=== PATIENT | female | born 1945 | race Caucasian/White ===

== ENCOUNTER → 2019-03-08 15:32 | Outpatient (CLI) | payer MEDICARE, OTHER, SELFPAY ==
[2019-03-08 17:09] LABS: Alanine Aminotransferase 18 IU/L (9-52); Albumin 4.4 g/dL (3.5-5.0); Albumin Globulin Ratio 1.5 (1.0-2.8); Alkaline Phosphatase 103 U/L (38-126); Aspartate Aminotransferase 25 IU/L (14-36); BUN Creatinine Ratio 28.3 (6-22); Bilirubin Total 0.2 mg/dL (0.2-1.3); Blood Urea Nitrogen 17 mg/dL (7-17); Calcium 10.3 mg/dL (8.4-10.2); Carbon Dioxide 29 mmol/L (22-32); Chloride 101 mmol/L (98-107); Cholesterol 128 mg/dL (140-199); Estimated Glomerular Filt Rate > 60.0 mL/min (>60); Globulin 2.9 g/dL (1.7-4.1); Glucose 95 mg/dL (80-110); HDL Cholesterol 79 mg/dL (40-60); HEMOLYSIS < 15 (0-50); LDL Cholesterol Calculated 32 mg/dL (<100); Potassium 4.4 mmol/L (3.4-5.1); Sodium 139 mmol/L (137-145); Total Protein 7.3 g/dL (6.3-8.2); Triglycerides 86 mg/dL (35-150)
== END ==
PROVIDERS: Visit Provider Specialist
DX: E11.9 Type 2 diabetes mellitus without complications (principal)
CPT/HCPCS: 36415; 80053; 80061

== ENCOUNTER → 2019-05-08 14:51 | Outpatient (CLI) | payer MEDICARE, OTHER, SELFPAY ==
[2019-05-08 16:48] LABS: Creatinine Urine Random 75.9 mg/dL
[2019-05-08 16:52] LABS: Microalbumi Creatinin Ratio Ur 9.2 ug/mg CR (<30); Microalbumin Urine Random 0.7 mg/dL (0-1.6)
== END ==
PROVIDERS: PCP Physician Assistant Medical; Visit Provider Family Medicine
DX: E11.9 Type 2 diabetes mellitus without complications (principal)
CPT/HCPCS: 36415; 82043; 82570; 83036

== ENCOUNTER 2019-07-13 11:58 | Emergency (ER) | payer MEDICARE, OTHER, SELFPAY ==
--- NOTE | 2019-07-13 12:13 | DI.RAD.S_ITS ---
PROCEDURE: XR CHEST 1V INDICATIONS: chest pain TECHNIQUE: One view of the chest was acquired. COMPARISON: None. FINDINGS: Surgical changes and devices: None. Lungs and pleura: Lungs are clear. No pleural effusions or pneumothorax. Mediastinum: Mediastinal contours appear normal. Heart size is normal. Bones and chest wall: No suspicious bony lesions. Overlying soft tissues appear unremarkable. IMPRESSION: No acute cardiopulmonary disease. Dictated by: Mario Gonzales M.D. on 07/13/2019 at 14:16 Approved by: Mario Gonzales M.D. on 07/13/2019 at 14:17
[2019-07-13 12:16] VITALS: BP 120/87; PULSE 157; RESP 20; TEMP 36.3; O2SAT 99; BMI 29.8
[2019-07-13 12:19] LABS: Add Manual Diff / Slide Review NO; Basophils Absolute Auto 100 /uL (0-100); Basophils Percent Auto 1.2 % (0-2); Eosinophils Absolute Auto 300 /uL (0-450); Eosinophils Percent Auto 3.2 % (2-4); Hemoglobin 12.5 g/dL (12.0-16.0); Lymphocytes Absolute Auto 3200 /uL (1100-4500); Mean Corpuscular Hemoglobin 29.6 PG (26-34); Mean Corpuscular Volume 89.8 fL (80-100); Monocytes Absolute Auto 700 /uL (0-900); Monocytes Percent Auto 8.4 % (3-14); Neutrophils Absolute Auto 4200 /uL (1500-7000); Neutrophils Percent Auto 49.2 % (50-75); Platelet Count 261 X10^3/uL (150-400); Red Blood Cell Count 4.23 X10^6/uL (4.0-5.2); Red Cell Distribution Width 14.7 % (11.6-14.8); White Blood Cell Count 8.5 X10^3/uL (4.5-11.0)
[2019-07-13 12:20] LABS: INR 0.9 (0.9-1.3); Prothrombin Time 10.4 SECONDS (10.1-12.7)
[2019-07-13 12:23] LABS: PTT Partial Thromboplastin Tim 31 SECONDS (26.4-36.2)
[2019-07-13 12:24] LABS: Alanine Aminotransferase 26 IU/L (<35); Albumin 4.7 g/dL (3.5-5.0); Albumin Globulin Ratio 1.4 (1.0-2.8); Alkaline Phosphatase 121 U/L (38-126); Aspartate Aminotransferase 34 IU/L (14-36); Bilirubin Total 0.3 mg/dL (0.2-1.3); Blood Urea Nitrogen 21 mg/dL (7-17); Calcium 9.9 mg/dL (8.4-10.2); Carbon Dioxide 24 mmol/L (22-32); Chloride 102 mmol/L (98-107); Creatine Kinase 154 U/L (30-135); Estimated Glomerular Filt Rate > 60.0 mL/min (>60); Globulin 3.3 g/dL (1.7-4.1); Glucose 166 mg/dL (80-110); HEMOLYSIS < 15 (0-50); Lipase 116 U/L (23-300); Potassium 4.4 mmol/L (3.4-5.1); Sodium 138 mmol/L (137-145)
[2019-07-13 12:36] LABS: Troponin I < 0.012 ng/mL (0.01-0.034)
[2019-07-13 12:39] LABS: CKMB % Relative Index 1.5 % (1.5-5.0); Creatine Kinase MB 2.26 ng/mL (<2.37)
[2019-07-13 13:19] VITALS: BP 119/62; PULSE 93; RESP 10; O2SAT 98
--- NOTE | 2019-07-13 13:27 | ED_ITS ---
HPI - Arrhythmia/Palpitations General Chief Complaint: Arrhythmia/Palpitations Stated Complaint: states arythmia Time Seen by Provider: 07/13/19 12:26 Source: patient Mode of arrival: Ambulatory Limitations: no limitations History of Present Illness HPI narrative: CC: SVT HPI: The patient is a very pleasant 73-year-old female who states that she has a SVT of 150. 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 She states that she has received no medications to conferred her rhythm. She denies ever being told that she had a pre-excitation or reentrant tachycardia. 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 She takes diltiazem 240 mg per day and metoprolol 25 mg per day as well as magnesium. She states that she took her metoprolol at 11:20 a.m.. Her tachycardia today lasted longer than expected so she came into the emergency department. She has been short of breath but denies any chest pain. She did however feel weak dizzy and without energy. She admits to being a diabetic but has had no hypertension seizure disorder stroke myocardial infarction COPD or asthma. She does not smoke cigarettes or use any drugs. She denies any fever chills sweats headache change in both vision or chest pain. She has had shortness of breath and a minimal dry cough. She has had no nausea vomiting abdominal pain or diarrhea. She denies any urinary symptoms. Related Data Home Medications Medication Instructions Recorded Confirmed rosuvastatin [Crestor] #0 02/23/16 Previous Rx's Medication Instructions Recorded nitrofurantoin monohyd/m-cryst 100 mg PO Q12H #10 cap 02/23/16 [Macrobid] phenazopyridine [Pyridium] 200 mg PO TID #10 tab 02/23/16 Allergies Allergy/AdvReac Type Severity Reaction Status Date / Time adhesive tape [ADHESIVE TAPE] Allergy Mild rash/red Verified 07/13/19 12:16 Review of Systems Review of Systems Narrative: Review systems were negative except for those mentioned in the history of present illness. Exam Narrative Exam Narrative: PHYSICAL EXAM: CONSTITUTIONAL: Awake, Alert, Oriented, Coherent, Cooperative in NAD. Does not appear toxic or ill. Her hair looks as though it was diaphoretic. HEAD: AT/NC EENT: PERRL, FROM of eyes, no discharge, Oral mucosa is moist and pink, posterior pharynx is without erythema or exudate. NECK: Supple, no obvious JVD, Trachea is midline without stridor, no palpable LN or masses. SPINE: No gross deformity, no palpable tenderness of the cervical, thoracic, lumbar or sacral spine. No CVA tenderness. THORAX: No deformity, retractions, chest wall tenderness, LUNGS: Clear with symmetrical breath sounds without respiratory distress HEART: Normal heart tones, regular rhythm and rate with a soft grade 1-2/6 systolic murmur along the left sternal border. She states that she may have a history of mitral insufficiency.. ABDOMEN: Soft, non-tender, normal bowel sounds without guarding, rebound, rigid ity or palpable mass EXTREMITIES: No edema, cyanosis, deformity or tenderness. SKIN: No rash, bruising, petechiae or purpura. NEURO: Awake, alert, oriented, conversive, cranial nerves II-XII are symmetrical and normal, moves all 4 extremities and is ambulatory The patient converted as I touch the patient on the legs and was starting to evaluate and examine the patient. She converted spontaneously. Initial Vital Signs Initial Vital Signs: Vital Signs Temperature 97.4 F L 07/13/19 12:16 Pulse Rate 157 H 07/13/19 12:16 Respiratory Rate 20 07/13/19 12:16 Blood Pressure 120/87 07/13/19 12:16 Pulse Oximetry 99 07/13/19 12:16 Course Course Course Narrative: 1329 patient's chest x-ray by my review reveals no acute cardiopulmonary pathology. When I started to examine the patient she spontaneously converted to a normal sinus rhythm. The ventricular rate was 91 without any acute diagnostic ST segment changes. Her laboratory chemistries are within normal limits. Her BUN is slightly elevated in the patient may be dehydrated. Her magnesium was normal. CPK slightly elevated but troponin was normal. The patient will be discharged. Orders Ordered: ED Orders 07/13/19 12:04 Complete Blood Count AUTO DIFF Stat Comprehensive Metabolic Panel Stat Lipase Stat Magnesium Stat Partial Thromboplastin Time Stat Prothrombin Time INR Stat Troponin & CK Cardiac Panel Stat 07/13/19 12:07 EKG-12 Lead Routine 07/13/19 12:13 XR chest 1V Stat 07/13/19 12:41 EKG-12 Lead Stat Vital Signs Vital signs: Vital Signs - 8 hr 07/13/19 13:19 07/13/19 14:00 Pulse Rate 93 H 86 Respiratory Rate 10 L 18 Blood Pressure 110/61 Blood Pressure [Left Arm] 119/62 Pulse Oximetry 98 97 MDM - Arrhythmia/Palpitations Medical Records Attestation: I reviewed the patient's medical records. Lab Data Attestation: I reviewed the patient's lab results. Result diagrams: 07/13/19 12:04 07/13/19 12:04 Labs: Lab Results 07/13/19 07/13/19 07/13/19 Range/Units 12:04 12:04 12:04 WBC 8.5 (4.5-11.0) X10^3/uL RBC 4.23 (4.0-5.2) X10^6/uL Hgb 12.5 (12.0-16.0) g/dL Hct 38.0 (36-46) % MCV 89.8 (80-100) fL MCH 29.6 (26-34) PG MCHC 33.0 (30-36) % RDW 14.7 (11.6-14.8) % Plt Count 261 (150-400) X10^3/uL Neut % (Auto) 49.2 L (50-75) % Lymph % (Auto) 38.0 (25-40) % [place] % (Auto) 8.4 (3-14) % Eos % (Auto) 3.2 (2-4) % Baso % (Auto) 1.2 (0-2) % Neut # (Auto) 4200 (5260-9894) /uL Lymph # (Auto) 3200 (6120-3573) /uL [place] # (Auto) 700 (0-900) /uL Eos # (Auto) 300 (0-450) /uL Baso # (Auto) 100 (0-100) /uL PT 10.4 (10.1-12.7) SECONDS INR 0.9 (0.9-1.3) APTT 31 (26.4-36.2) SECONDS Sodium 138 (137-145) mmol/L Potassium 4.4 (3.4-5.1) mmol/L Chloride 102 (98-107) mmol/L Carbon Dioxide 24 (22-32) mmol/L BUN 21 H (7-17) mg/dL Creatinine 0.70 (0.52-1.04) mg/dL Estimated GFR > 60.0 (>60) mL/min BUN/Creatinine Ratio 30.0 H (6-22) Glucose 166 H (80-110) mg/dL Calcium 9.9 (8.4-10.2) mg/dL Magnesium (1.6-2.3) mg/dL Total Bilirubin 0.3 (0.2-1.3) mg/dL AST 34 (14-36) IU/L ALT 26 (<35) IU/L Alkaline Phosphatase 121 (38-126) U/L Total Creatine Kinase 154 H (30-135) U/L CK-MB (CK-2) 2.26 (<2.37) ng/mL CK-MB (CK-2) Rel Index 1.5 (1.5-5.0) % Troponin I < 0.012 (0.01-0.034) ng/mL Total Protein 8.0 (6.3-8.2) g/dL Albumin 4.7 (3.5-5.0) g/dL Globulin 3.3 (1.7-4.1) g/dL Albumin/Globulin Ratio 1.4 (1.0-2.8) Lipase 116 (23-300) U/L 02/13/20 Range/Units 12:04 WBC (4.5-11.0) X10^3/uL RBC (4.0-5.2) X10^6/uL Hgb (12.0-16.0) g/dL Hct (36-46) % MCV (80-100) fL MCH (26-34) PG MCHC (30-36) % RDW (11.6-14.8) % Plt Count (150-400) X10^3/uL Neut % (Auto) (50-75) % Lymph % (Auto) (25-40) % [place] % (Auto) (3-14) % Eos % (Auto) (2-4) % Baso % (Auto) (0-2) % Neut # (Auto) (8482-1443) /uL Lymph # (Auto) (4281-4143) /uL [place] # (Auto) (0-900) /uL Eos # (Auto) (0-450) /uL Baso # (Auto) (0-100) /uL PT (10.1-12.7) SECONDS INR (0.9-1.3) APTT (26.4-36.2) SECONDS Sodium (137-145) mmol/L Potassium (3.4-5.1) mmol/L Chloride (98-107) mmol/L Carbon Dioxide (22-32) mmol/L BUN (7-17) mg/dL Creatinine (0.52-1.04) mg/dL Estimated GFR (>60) mL/min BUN/Creatinine Ratio (6-22) Glucose (80-110) mg/dL Calcium (8.4-10.2) mg/dL Magnesium 2.0 (1.6-2.3) mg/dL Total Bilirubin (0.2-1.3) mg/dL AST (14-36) IU/L ALT (<35) IU/L Alkaline Phosphatase (38-126) U/L Total Creatine Kinase (30-135) U/L CK-MB (CK-2) (<2.37) ng/mL CK-MB (CK-2) Rel Index (1.5-5.0) % Troponin I (0.01-0.034) ng/mL Total Protein (6.3-8.2) g/dL Albumin (3.5-5.0) g/dL Globulin (1.7-4.1) g/dL Albumin/Globulin Ratio (1.0-2.8) Lipase (23-300) U/L ECG Data Attestation: I personally reviewed and interpreted this ECG as follows: Interpretation: The patient's EKG obtained on July 13 at 12:0 7:20 a.m. revealed a supraventricular tachycardia with a ventricular rate of 150. No P waves were discernible. The patient looks like she may have left ventricular hypertrophy by voltage. T-waves are inverted in III and V1. The patient had nonspecific ST segment depressions in leads V3 V4 V5 V6 and I. There were no acute ST segment elevations. This may be rate dependent. Patient's 2nd EKG obtained on July 13 at 12:4 1:44 a.m. revealed a ventricular rate of 85 and a sinus rhythm. T-waves were flat in III and inverted in V1 within our SR prime confirmation. The ST segment depressions were not as prominent. There was no acute diagnostic ST segment changes. T- waves were inverted in V1. Discharge Plan Departure Patient Disposition: Home Clinical Impression: Palpitations, Supraventricular tachycardia Discharge Date/Time: 07/13/19 14:02 Instructions: DI for Arrhythmias, DI for Paroxysmal Supraventricular Tachycardia Activity Restrictions/Additional Instructions: 1. Rest when you get home and drink plenty of fluids for the next couple of days. Your laboratory chemistries suggest the possibility of being mildly dehydrated. Normal daily fluid maintenance is 2 L per day. I would try and drink that for the next few days. 2. Take your regular home medications as prescribed. 3. Avoid caffeinated beverages especially today. 4. If you developed recurrent rapid heart rate associated with chest pain, shortness of breath, feelings of being faint or passing-out you need to return to the emergency department. Prescriptions: No Action rosuvastatin [Crestor] 5 MG tablet Qty: 0 RF: 0 phenazopyridine [Pyridium] 200 MG tablet 200 mg PO TID Qty: 10 RF: 0 nitrofurantoin monohyd/m-cryst [Macrobid] 100 MG capsule 100 mg PO Q12H Qty: 10 RF: 0 Referrals: Jorje Shukla [Primary Care Provider] -
[2019-07-13 14:00] VITALS: BP 110/61; PULSE 86; RESP 18; O2SAT 97
== END 2019-07-13 14:02 | disposition home or self-care (01) ==
PROVIDERS: Emergency Provider Emergency Medicine; PCP Family Medicine
DX: I47.1 Supraventricular tachycardia (principal); R00.2 Palpitations
CPT/HCPCS: 36415; 71045; 80053; 82550; 82553; 83690; 83735; 84484; 85025; 85610; 85730; 93005; 99284; 99285

== ENCOUNTER 2019-08-02 12:30 | Outpatient (RCR) | payer MEDICARE, OTHER, SELFPAY ==
--- NOTE | 2019-06-06 15:19 | OT.OP.EVAL ---
Visit Care Team Role Provider Type Jorje Shukla Primary Care Provider Non-Staff Specialty: Medical Address: [address] [place] [address], [id number] Email: Leann Ariza DO Attending Provider Non-Staff Specialty: Medical Address: [address] [place] [address], [id number] Email: Occupational Therapy Initial Evaluation OT Outpatient Adult Evaluation Start: 06/06/19 14:34 Freq: Status: Active Protocol: Document 06/06/19 14:36 AMS (Rec: 06/06/19 15:19 AMS [email or web address]) General Information Visit Start Time 12:30 Visit Stop Time 13:20 Total Visit Minutes 50 Visit Number 06/09 Plan of Care Dates 06/06/19-08/29/19 Insurance Information Medicare Treatment Setting Outpatient Care Note Type Initial Evaluation Referring Physician Leann Ariza DO Reason for Referral OA of both hands Identification Confirmed Yes: Photo ID Patient Concerns Bilateral hand/wrist weakness; trouble dropping things; decreased FM Goals Objective Measurements Pain Assessment Grid completed . 2/10 indicated on the Pain Assessment Grid relative to volar and dorsal surfaces of the R thumb. 3/10 indicated on the Pain Assessment Grid relative to volar and dorsal surfaces of the L thumb and 2/ 10 of the dorsal L wrist. 3/10 was indicated on the Pain Assessment Grid relative to anterior L shoulder. Treatment Initiated home exercise program. Verbally reviewed basic joint protection principles. Instructed in gentle strengthening of hands/ digits utilizing foam stress ball (tip pinch, lateral pinch , opposition), as well as AROM w/ foam stress ball (palmar thumb abduction, thumb extension). Patient denied questions. 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 John Paulylee will be modified independent with execution of distal UE home exercise program utilizing provided written and visual instructions from therapist. 2. Santosh will present with increased bilateral hand/ digit strength, as evidenced by ability to utilize theraputty with execution of home exercise program. 3. John Paulylee will verbalize 100% of joint protection principles utilizing provided written and visual instructions from therapist. Assessment/Plan Patient Response Good Rehabilitation Potential Good Treatment Assessment Patient is a 73 year-old right hand dominant female who was referred to outpatient OT by PCP secondary to bilateral OA of the hands. Santosh reports active lifestyle swimming 3 x per week and using personal elliptical (without arms) and bike 2-3 times per week. PMH: Significant for R radial wrist fracture; arthritis; back pain; cancer; diabetes II ; joint replacement; neck pain ; paroxysmal tachycardia; hysterectomy. Patient concerns: Distal B UE weakness; increasing difficulties w/ managing small objects (e.g., buttons); dropping of objects; questioning sensation. 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 Outpatient OT is recommended to maximize patient's functional success with engagement in meaningful activities. Recommended activities include education re: joint protection and environmental modifications/AE use; gentle strengthening of hands/digits; and fine motor tasks to support motor coordination. Home Exercise Program Please refer to treatment section of note for specific details. Reviewed with Patient Goals,Home Exercise Program Comment 12 weeks Treatment Frequency Once a Week Therapeutic Contents Active Range of Motion, Adaptive Equipment Education, Client Education,Cognitive Skills Development,Functional Activities,Home Exercise Program,Joint Protection, Manual Therapy,Education, Neurodevelopment Treatment, Neuromuscular Re-Education, Self-Care,Stretching/ Flexibility Activities, Therapeutic Activities, Therapeutic Exercises, Modalities Modalities As Needed,As Prescribed Types of Modalities Contrast Bath,Ice Massage, Ultrasound,Other Additional Types of Modalities Parrafin/Heat Patient Instruction Home Exercise Program,Plan of Care,Questions/Concerns Occupational Therapy Assessment OT Outpatient Muscle Testing Start: 06/06/19 14:34 Freq: Status: Active Protocol: Document 06/06/19 14:36 AMS (Rec: 06/06/19 15:19 AMS [email or web address]) Wrist Strength Wrist Manual Muscle Testing Left Flexion (C7) 4 Good Extension (C6) 5 Normal Ulnar Deviation 3+ Fair+ Radial Deviation 3+ Fair+ Right Flexion (C7) 5 Normal Extension (C6) 4 Good Ulnar Deviation 4 Good Radial Deviation 3+ Fair+ Tool Polishing Machine Operator/Hand Strength Tool Polishing Machine Operator/Hand Strength Left Tool Polishing Machine Operator Dynamometer II 33.5 Comments L Tool Polishing Machine Operator Norms for Women 70-74 years of age = 41.5 +/- 10.2 pounds of force Interpretation = within 1 SD below the mean Right Tool Polishing Machine Operator Dynamometer II 31.5 Comments R Tool Polishing Machine Operator Norms for Women 70-74 years of age = 49.6 +/- 11.7 pounds of force Interpretation = > 1 SD below the mean
--- NOTE | 2019-06-21 14:06 | OT.OP.TRT ---
Visit Care Team Role Provider Type Jorje Coreyjoe Primary Care Provider Non-Staff Specialty: Medical Address: [address] [place] [address], [id number] Email: Leann Ariza DO Attending Provider Non-Staff Specialty: Medical Address: [address] [place] [address], [place], [id number] Email: Occupational Therapy Treatment Note OT Outpatient Treatment Note - Adult Start: 06/06/19 14:34 Freq: Status: Active Protocol: Document 06/21/19 13:43 AMS (Rec: 06/21/19 14:06 AMS [email or web address]) OT Outpatient Adult Treatment Note Session Time Visit Start Time 12:30 Visit Stop Time 13:20 Total Visit Minutes 50 Visit Information Plan of Care Dates 06/06/19-08/29/19 Setting Treatment Setting Outpatient Care Visit Type Note Type Treatment Note General Information General Information Patient is a 73 year-old right hand dominant female who was referred to outpatient OT by PCP secondary to bilateral OA of the hands. Santosh reports active lifestyle swimming 3 x per week and using personal elliptical (without arms) and bike 2-3 times per week. PMH: Significant for R radial wrist fracture; arthritis; back pain; cancer; diabetes II ; joint replacement; neck pain ; paroxysmal tachycardia; hysterectomy. - Subjective Identification Type Name Identification Reconciled With Medical Record Observations I have been doing my exercises. I could feel that the muscles in my fatigued from working per Sharylee. I do not think that my dropping of objects is lack of sensation. I think that is more related to proprioception . Chief Complaint(s) Restricts Additional Areas of Concern Distal B UE weakness; diff w/ managing small objects; dropping of objects Patient/Caregiver Compliance with Home Good Exercise Program Comments utilizing provided written/ visual instructions - Objective Objective Measurements Please refer to below for progress towards meeting established OT goals. Residential Goals 1. Santosh will be modified independent with execution of distal UE home exercise program utilizing provided written and visual instructions from therapist. 2. Santosh will present with increased bilateral hand/ digit strength, as evidenced by ability to utilize theraputty with execution of home exercise program. 3. Santosh will verbalize 100% of joint protection principles utilizing provided written and visual instructions from therapist. - Treatment 1 Descriptor Home Exercise Program. Advanced HEP on this treatment date. Initiated strengthening of first DI with active range of motion exercise; palmar abduction w/ rubberband at MCP ; extension of thumb. Written and visual instructions were provided to patient; copy placed in paper chart. Also discussed tightness of thumb webspace; options for release. Discussed advancement of kinesthetic awareness of digits. Patient denied questions. Exercises 2 Descriptor 1st DI Side Both Body Position Seated Sets 2 Repetitions 10 1 Descriptor Thumb ROM. Thumb extension palm TT. Thumb palmar abd. Thumb radial abd. Thumb opposition. Thumb flexion. Side Both Body Position Sitting Sets 2 Repetitions 10 - Assessment Patient Response to Treatment Good Rehab Potential Good Assessment of Improvement (+) compliance with home exercise program; unable to increase to resistance/advance strengthening exercises. Fatigue reported w/ current exercises. Advanced HEP w/ focus on ROM/addressing stiffness/tightness and kinesthetic awareness of digits. Recommend transitioning to 1 visit every 2 weeks given patient compliance w/ HEP and decreased ability to upgrade to resistance w/ current frequency. Patient in agreement. Recommend: alt options for addressing stiffness, joint mobs?, strengthening Home Exercise Program Please refer to treatment section of note for specific details. - Plan Therapy Recommendations Continue with Current Program, Advance per Rehabilitation Protocol
--- NOTE | 2019-07-05 15:10 | OT.OP.TRT ---
Visit Care Team Role Provider Type Jorje Coreyjoe Primary Care Provider Non-Staff Specialty: Medical Address: [address] [place] [address], [id number] Email: Leann Ariza DO Attending Provider Non-Staff Specialty: Medical Address: [address] [place] [address], [place], [address] Email: Occupational Therapy Treatment Note OT Outpatient Treatment Note - Adult Start: 06/06/19 14:34 Freq: Status: Active Protocol: Document 07/05/19 15:00 AMS (Rec: 07/05/19 15:09 AMS [email or web address]) OT Outpatient Adult Treatment Note Session Time Visit Start Time 12:30 Visit Stop Time 13:15 Total Visit Minutes 45 Visit Information Plan of Care Dates 06/06/19-08/29/19 Setting Treatment Setting Outpatient Care Visit Type Note Type Treatment Note General Information General Information Patient is a 73 year-old right hand dominant female who was referred to outpatient OT by PCP secondary to bilateral OA of the hands. Santosh reports active lifestyle swimming 3 x per week and using personal elliptical (without arms) and bike 2-3 times per week. PMH: Significant for R radial wrist fracture; arthritis; back pain; cancer; diabetes II ; joint replacement; neck pain ; paroxysmal tachycardia; hysterectomy. - Subjective Identification Type Name Identification Reconciled With Medical Record Observations I have a pair of pliers in the kitchen attached to my refrigerator to help me open milk containers per Sharylee. I think I hurt this shoulder helping my son out of the front seat of the car. I am now able to open my chapstick which I was having a hard time doing. Chief Complaint(s) Restricts Additional Areas of Concern Distal B UE weakness; diff w/ managing small objects; dropping of objects Patient/Caregiver Compliance with Home Good Exercise Program Comments utilizing provided written/ visual instructions - Objective Objective Measurements Please refer to below for progress towards meeting established OT goals. 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 Santosh will be modified independent with execution of distal UE home exercise program utilizing provided written and visual instructions from therapist. 2. Santosh will present with increased bilateral hand/ digit strength, as evidenced by ability to utilize theraputty with execution of home exercise program. 3. Santosh will verbalize 100% of joint protection principles utilizing provided written and visual instructions from therapist. - Treatment 1 Descriptor Home Exercise Program/POC. Advanced HEP on this treatment date. Initiated strengthening of the jiménez/tip pinches and thumb utilizing soft yellow theraputty; provided w/ theraputty for home use. Instructed in care and storage of theraputty. Discussed alternative use of rubberband if encountering difficulties with management of theraputty. Written and visual instructions were provided to patient; copy placed in paper chart. Discussed importance of use of joint protection principles, use of adaptive equipment/compensatory strategies to protect joints, ROM, and gentle strengthening. Discussed also use of conservative methods for pain/ swelling management. Discussed use of splints if needed. Patient denied questions. Recommended pursuing PT eval to address L shoulder. Exercises 2 Descriptor 1st DI, thumb ext, thumb radial abduction, thumb palmar abduction, lateral jiménez pinch, tip pinch Side Both Body Position Seated Sets 1 Repetitions 10 Resistance Yellow theraputty Complexity Upgraded 1 Descriptor Thumb ROM. Thumb extension palm TT. Thumb palmar abd. Thumb radial abd. Thumb opposition. Thumb flexion. Side Both Body Position Sitting Sets 2 Repetitions 10 - Assessment Patient Response to Treatment Good Rehab Potential Good Assessment of Improvement (+) compliance with home exercise program; advanced strengthening exercises with use of theraputty versus single rubberband. Reported improving functional obj manipulation; however, cont difficulties overall w/ hand fatigue and decreased strength . Discussed potential for PT referral to address L shoulder given focus of OT on distal UEs and OA. Recommend: hand/digit/thumb strengthening; ROM; object manipulation Home Exercise Program Please refer to treatment section of note for specific details. - Plan Therapy Recommendations Continue with Current Program, Advance per Rehabilitation Protocol Suggested Referrals Physical Therapy
--- NOTE | 2019-08-02 15:30 | OT.OP.TRT ---
Visit Care Team Role Provider Type Jorjeneelam Coreyjoe Primary Care Provider Non-Staff Specialty: Medical Address: [address] [place] [address], [id number] Email: Leann Ariza DO Attending Provider Non-Staff Specialty: Medical Address: [address] [place] [address], [place], [address] Email: Occupational Therapy Treatment Note OT Outpatient Treatment Note - Adult Start: 06/06/19 14:34 Freq: Status: Active Protocol: Document 08/02/19 15:30 AMS (Rec: 08/04/19 17:29 AMS [email or web address]) OT Outpatient Adult Treatment Note Session Time Visit Start Time 12:30 Visit Stop Time 13:15 Total Visit Minutes 45 Visit Information Visit Number 09/07 Plan of Care Dates 06/06/19-08/29/19 Insurance Information Medicare Setting Treatment Setting Outpatient Care Visit Type Note Type Treatment Note General Information General Information Patient is a 73 year-old right hand dominant female who was referred to outpatient OT by PCP secondary to bilateral OA of the hands. Santosh reports active lifestyle swimming 3 x per week and using personal elliptical (without arms) and bike 2-3 times per week. PMH: Significant for R radial wrist fracture; arthritis; back pain; cancer; diabetes II ; joint replacement; neck pain ; paroxysmal tachycardia; hysterectomy. - Subjective Identification Type Name Identification Reconciled With Medical Record Observations I am unable to use the theraputty. I am going to be sore after this per Santosh. Chief Complaint(s) Restricts Additional Areas of Concern Distal B UE weakness; diff w/ managing small objects; dropping of objects Patient/Caregiver Compliance with Home Good Exercise Program Comments utilizing provided written/ visual instructions - Objective Objective Measurements Please refer to below for progress towards meeting established OT goals. Ad Trafficker Goals 1. Santosh will be modified independent with execution of distal UE home exercise program utilizing provided written and visual instructions from therapist. 2. Santosh will present with increased bilateral hand/ digit strength, as evidenced by ability to utilize theraputty with execution of home exercise program. 3. Santosh will verbalize 100% of joint protection principles utilizing provided written and visual instructions from therapist. - Treatment 1 Descriptor Home Exercise Program/POC. Discussed use of splints if needed. Reviewed home exercise program and correct execution of exercises. Discussed options for care; discussed importance of gentle strengthening of thumbs ( avoidance of pain/discomfort w/ exercise execution). Patient denied questions. Exercises 3 Descriptor Re-assessed strength (media aid). See standardized section of note for specific details. 2 Descriptor 1st DI, thumb ext, thumb radial abduction, thumb palmar abduction, lateral jiménez pinch, tip pinch Side Both Body Position Seated Sets 1 Repetitions 10 Resistance Yellow theraputty Complexity Upgraded - Assessment Patient Response to Treatment Good Rehab Potential Good Assessment of Improvement Improved bilateral media aid strength as indicated by results of dynamometer strength testing. Improvements made in bilateral wrist strength as indicated by results w/ MMT testing. Not tolerating theraputty at this time with strengthening; focus on gentle strengthening. Will have follow-up treatment session; transition to [facility]. Home Exercise Program Please refer to treatment section of note for specific details. - Plan Therapy Recommendations Continue with Current Program, Advance per Rehabilitation Protocol Suggested Referrals Physical Therapy Occupational Therapy Assessment OT Outpatient Muscle Testing Start: 06/06/19 14:34 Freq: Status: Active Protocol: Document 08/02/19 15:30 AMS (Rec: 08/04/19 17:29 AMS [email or web address]) Wrist Strength Wrist Manual Muscle Testing Left Flexion (C7) 5 Normal Extension (C6) 5 Normal Ulnar Deviation 4+ Good+ Radial Deviation 4+ Good+ Comments *New Measurements taken 08/02/19 Initial evaluation findings: L wrist flexion 4/5; L wrist extension 5/5; 3+/5 UD; 3+/5 RD Right Flexion (C7) 5 Normal Extension (C6) 4+ Good+ Ulnar Deviation 4+ Good+ Radial Deviation 4+ Good+ Comments *New Measurements taken 08/02/19 Initial evaluation findings: R wrist flexion 5/5; R wrist extension 4/5; 4/5 UD; 3+/5 RD Health Professor/Hand Strength Health Professor/Hand Strength Left Health Professor Dynamometer II 36.0 Comments *New Avg obtained 08/02/19 L Health Professor Norms for Women 70-74 years of age = 41.5 +/- 10.2# of force Initial Evaluation = 33.5# of force; Interpretation = within 1 SD below the mean Right Health Professor Dynamometer II 33.5 Comments *New Avg obtained 08/02/19 R Health Professor Norms for Women 70-74 years of age = 49.6 +/- 11.7# of force Initial Evaluation = 31.5# of force; Interpretation = > 1 SD below the mean
--- NOTE | 2020-02-09 09:49 | OT.OP.DC ---
Visit Care Team Role Provider Type Jorje Shukla Primary Care Provider Non-Staff Address: [address] [place] [address], [id number] Email: Leann Ariza DO Attending Provider Non-Staff Address: [address] [place] [address], [id number] Email: OT Outpatient OT Outpatient Adult Evaluation Start: 06/06/19 14:34 Freq: Status: Active Protocol: Document 06/06/19 14:36 AMS (Rec: 06/06/19 15:19 AMS [email or web address]) General Information Session Time Visit Start Time 12:30 Visit Stop Time 13:20 Total Visit Minutes 50 Visit Information Visit Number 06/09 Plan of Care Dates 06/06/19-08/29/19 Insurance Information Medicare Setting Treatment Setting Outpatient Care Visit Type Note Type Initial Evaluation Referral Referring Physician Leann Ariza DO Reason for Referral OA of both hands Identification Identification Confirmed Yes: Photo ID Patient Patient Concerns Bilateral hand/wrist weakness; trouble dropping things; decreased FM Goals Objective Measurements Objective Measurements Pain Assessment Grid completed . 2/10 indicated on the Pain Assessment Grid relative to volar and dorsal surfaces of the R thumb. 3/10 indicated on the Pain Assessment Grid relative to volar and dorsal surfaces of the L thumb and 2/ 10 of the dorsal L wrist. 3/10 was indicated on the Pain Assessment Grid relative to anterior L shoulder. Treatment Treatment Initiated home exercise program. Verbally reviewed basic joint protection principles. Instructed in gentle strengthening of hands/ digits utilizing foam stress ball (tip pinch, lateral pinch , opposition), as well as AROM w/ foam stress ball (palmar thumb abduction, thumb extension). Patient denied questions. 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 Santosh will be modified independent with execution of distal UE home exercise program utilizing provided written and visual instructions from therapist. 2. Santosh will present with increased bilateral hand/ digit strength, as evidenced by ability to utilize theraputty with execution of home exercise program. 3. John Paulylee will verbalize 100% of joint protection principles utilizing provided written and visual instructions from therapist. Assessment/Plan Assessment Patient Response Good Rehabilitation Potential Good Treatment Assessment Patient is a 73 year-old right hand dominant female who was referred to outpatient OT by PCP secondary to bilateral OA of the hands. Santosh reports active lifestyle swimming 3 x per week and using personal elliptical (without arms) and bike 2-3 times per week. PMH: Significant for R radial wrist fracture; arthritis; back pain; cancer; diabetes II ; joint replacement; neck pain ; paroxysmal tachycardia; hysterectomy. Patient concerns: Distal B UE weakness; increasing difficulties w/ managing small objects (e.g., buttons); dropping of objects; questioning sensation. 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 Patient presents w/ decreased hand/ digit strength w/ (-) tolerance for pinch strength testing; decreased bilateral brazing machine setter strength compared to same -aged female peers; with mild edema of the dorsal radial side of L wrist; decreased bilateral wrist strength; intact opposition with EO and EC; slight errors observed [id number] bilaterally w/ EC (errors more notable w/ R UE movement); denial in change in sensation of distal UEs; and reported decreasing functional speed and efficiency w/ small object manipulation (e.g., button manipulation/management). Outpatient OT is recommended to maximize patient's functional success with engagement in meaningful activities. Recommended activities include education re: joint protection and environmental modifications/AE use; gentle strengthening of hands/digits; and fine motor tasks to support motor coordination. Home Exercise Program Please refer to treatment section of note for specific details. Reviewed with Patient Goals,Home Exercise Program Plan Comment 12 weeks Treatment Frequency Once a Week Therapeutic Contents Active Range of Motion, Adaptive Equipment Education, Client Education,Cognitive Skills Development,Functional Activities,Home Exercise Program,Joint Protection, Manual Therapy,Education, Neurodevelopment Treatment, Neuromuscular Re-Education, Self-Care,Stretching/ Flexibility Activities, Therapeutic Activities, Therapeutic Exercises, Modalities Modalities As Needed,As Prescribed Types of Modalities Contrast Bath,Ice Massage, Ultrasound,Other Additional Types of Modalities Parrafin/Heat Patient Instruction Home Exercise Program,Plan of Care,Questions/Concerns Sensory Assessment Sensory Profile2 Functional Wrist/Hand Scan Hand Side OT Outpatient Muscle Testing Start: 06/06/19 14:34 Freq: Status: Active Protocol: Document 08/02/19 15:30 AMS (Rec: 08/02/19 15:34 AMS [email or web address]) Wrist Strength Wrist Manual Muscle Testing Left Flexion (C7) 4 Good Extension (C6) 5 Normal Ulnar Deviation 3+ Fair+ Radial Deviation 3+ Fair+ Right Flexion (C7) 5 Normal Extension (C6) 4 Good Ulnar Deviation 4 Good Radial Deviation 3+ Fair+ Public Speaking Instructor/Hand Strength Public Speaking Instructor/Hand Strength Left Public Speaking Instructor Dynamometer II 33.5 Comments L Public Speaking Instructor Norms for Women 70-74 years of age = 41.5 +/- 10.2# of force Interpretation = within 1 SD below the mean Right Public Speaking Instructor Dynamometer II 31.5 Comments R Public Speaking Instructor Norms for Women 70-74 years of age = 49.6 +/- 11.7# of force Interpretation = > 1 SD below the mean OT Outpatient Treatment Note - Adult Start: 06/06/19 14:34 Freq: Status: Active Protocol: Document 02/09/20 09:47 AMS (Rec: 02/09/20 09:49 AMS [id number]) OT Outpatient Adult Treatment Note Visit Information Plan of Care Dates 06/06/19-08/29/19 Setting Treatment Setting Outpatient Care Visit Type Note Type Discharge Summary - Subjective Observations Vernell has not been seen in the outpatient clinic since 08/02/19 for OT. POC also as of 08/29/19. Thus, recommend d/ c and therapist to re-evaluate as deemed appropriate by patient's PCP. - Objective Non Garment Sewing Machine Operator Goals 1. Santosh will present with increased bilateral hand/ digit strength, as evidenced by ability to utilize theraputty with execution of home exercise program. 2. Santosh will verbalize 100% of joint protection principles utilizing provided written and visual instructions from therapist. GOALS MET OF TIME OF D/C Modified independent with execution of distal UE home exercise program utilizing provided written and visual instructions from therapist. = mod I w/ execution of HEP that was established as of 08/02/19 (last treatment date) - - Assessment Assessment of Improvement Vernell has not been seen in the outpatient clinic since 08/02/19 for OT. POC also as of 3/31/20. Thus, recommend d/ c and therapist to re-evaluate as deemed appropriate by patient's PCP. - Plan Therapy Recommendations Discharge from Occupational Therapy
== END 2020-02-12 13:35 ==
LOC: OT 12:30
PROVIDERS: PCP Family Medicine; Visit Provider Family Medicine
DX: M19.041 Primary osteoarthritis, right hand (principal); M19.042 Primary osteoarthritis, left hand
CPT/HCPCS: 97110; 97165

== ENCOUNTER → 2019-09-27 15:32 | Outpatient (CLI) | payer MEDICARE, OTHER, SELFPAY ==
[2019-09-27 15:55] LABS: Bacteria Urine None Seen
[2019-09-27 16:33] LABS: Appearance Urine UA CLEAR; Bilirubin Urine UA NEGATIVE (NEGATIVE); Color Urine UA YELLOW; Glucose Urine UA NEGATIVE (Negative); Ketones Urine UA NEGATIVE (NEGATIVE); Leukocyte Esterase Urine UA TRACE (NEGATIVE); Nitrite Urine UA NEGATIVE (Negative); Occult Blood Urine UA 2+ (Negative); Protein Urine UA NEGATIVE (Negative); Specific Gravity Urine UA 1.015 (1.000-1.035); Urobilinogen Urine UA 0.2 E.U./dL (0.2)
[2019-09-27 16:42] LABS: pH Urine UA 5.5 (4.5-8.0)
[2019-09-27 16:54] LABS: Culture Indicated Urine Specimen Cultured; RBC Urine 1-5/HPF (0-5/HPF); Squamous Epithelial Cell Urine 0-1 /HPF (0-5/HPF); WBC Urine 10-30/HPF (0-5/HPF)
== END ==
PROVIDERS: PCP Family Medicine; Referring Provider Neuromusculoskeletal Medicine & OMM; Visit Provider Neuromusculoskeletal Medicine & OMM
DX: R39.9 Unspecified symptoms and signs involving the genitourinary system (principal)
CPT/HCPCS: 81001; 87086

== ENCOUNTER → 2019-11-16 15:05 | Outpatient (CLI) | payer MEDICARE, OTHER, SELFPAY ==
[2019-11-16 16:20] LABS: Alanine Aminotransferase 23 IU/L (<35); Albumin 4.4 g/dL (3.5-5.0); Albumin Globulin Ratio 1.5 (1.0-2.8); Alkaline Phosphatase 121 U/L (38-126); Aspartate Aminotransferase 29 IU/L (14-36); BUN Creatinine Ratio 33.9 (6-22); Bilirubin Total 0.2 mg/dL (0.2-1.3); Blood Urea Nitrogen 19 mg/dL (7-17); Calcium 9.9 mg/dL (8.4-10.2); Carbon Dioxide 27 mmol/L (22-32); Chloride 101 mmol/L (98-107); Estimated Glomerular Filt Rate > 60.0 mL/min (>60); Globulin 2.9 g/dL (1.7-4.1); Glucose 119 mg/dL (80-110); HEMOLYSIS < 15 (0-50); Magnesium 2.2 mg/dL (1.6-2.3); Potassium 4.4 mmol/L (3.4-5.1); Sodium 137 mmol/L (137-145); Total Protein 7.3 g/dL (6.3-8.2)
[2019-11-18 08:08] LABS: Cholesterol, Total 175 mg/dL (100-199); HDL-Cholesterol 73 mg/dL (>39); HDL-Particle (Total) 44.1 umol/L (>=30.5); LDL Particle 772 nmol/L (<1000); LDL Size 20.8 nm (>20.5); LDL-Cholsterol 56 mg/dL (0-99); LP-IR Score 66 (<=45); Small LDL- Particle 307 nmol/L (<=527); Triglycerides 228 mg/dL (0-149)
== END ==
PROVIDERS: PCP Family Medicine; Referring Provider Specialist; Visit Provider Specialist
DX: I47.1 Supraventricular tachycardia (principal); E11.9 Type 2 diabetes mellitus without complications; I47.9 Paroxysmal tachycardia, unspecified
CPT/HCPCS: 36415; 80053; 80061; 83704; 83735

== ENCOUNTER → 2020-04-26 16:47 | Outpatient (CLI) | payer MEDICARE, OTHER, SELFPAY ==
[2020-04-26 18:17] LABS: Hemoglobin A1C% w Est Avg Glu 7.3 % (4.0-6.0)
[2020-04-26 18:26] LABS: Creatinine Urine Random 55.6 mg/dL
[2020-04-26 18:33] LABS: Microalbumin Urine Random < 0.6 mg/dL (0-1.6)
== END ==
PROVIDERS: Neuromusculoskeletal Medicine & OMM; PCP Family Medicine; Referring Provider Family Medicine; Visit Provider Family Medicine
DX: R73.03 Prediabetes (principal)
CPT/HCPCS: 36415; 82043; 82570; 83036

== ENCOUNTER → 2020-08-08 12:29 | Outpatient (CLI) | payer MEDICARE, OTHER, SELFPAY ==
[2020-08-08] MEDS: COVID-19 VACC, Ad26(JANSSEN)/PF 0.5 ML IM (12:35)
== END ==
PROVIDERS: PCP Family Medicine; Visit Provider Internal Medicine
DX: Z23 Encounter for immunization (principal)
CPT/HCPCS: 0031A; 91303

== ENCOUNTER → 2020-09-09 12:36 | Outpatient (CLI) | payer MEDICARE, OTHER, SELFPAY ==
[2020-09-09 13:37] LABS: Hemoglobin A1C% w Est Avg Glu 7.3 % (4.0-6.0)
[2020-09-09 13:44] LABS: Add Manual Diff / Slide Review NO; Basophils Absolute Auto 100 /uL (0-100); Basophils Percent Auto 1.6 % (0-2); Eosinophils Absolute Auto 300 /uL (0-450); Eosinophils Percent Auto 5.1 % (2-4); Hematocrit 35.7 % (36-46); Hemoglobin 11.7 g/dL (12.0-16.0); Lymphocytes Absolute Auto 2600 /uL (1100-4500); Lymphocytes Percent Auto 40.8 % (25-40); Mean Corpuscular HGB Conc 32.9 % (30-36); Mean Corpuscular Hemoglobin 29.3 PG (26-34); Mean Corpuscular Volume 88.9 fL (80-100); Monocytes Absolute Auto 700 /uL (0-900); Monocytes Percent Auto 10.5 % (3-14); Neutrophils Absolute Auto 2700 /uL (1500-7000); Platelet Count 236 X10^3/uL (150-400); Red Blood Cell Count 4.01 X10^6/uL (4.0-5.2); Red Cell Distribution Width 14.8 % (11.6-14.8); White Blood Cell Count 6.5 X10^3/uL (4.5-11.0)
[2020-09-09 13:55] LABS: Alanine Aminotransferase 22 IU/L (<35); Albumin 4.5 g/dL (3.5-5.0); Albumin Globulin Ratio 1.5 (1.0-2.8); Alkaline Phosphatase 97 U/L (38-126); Aspartate Aminotransferase 28 IU/L (14-36); BUN Creatinine Ratio 25.9 (6-22); Bilirubin Total 0.2 mg/dL (0.2-1.3); Blood Urea Nitrogen 15 mg/dL (7-17); Calcium 9.9 mg/dL (8.4-10.2); Carbon Dioxide 29 mmol/L (22-32); Chloride 102 mmol/L (98-107); Cholesterol 145 mg/dL (140-199); Estimated Glomerular Filt Rate > 60.0 mL/min (>60); Globulin 3.1 g/dL (1.7-4.1); Glucose 136 mg/dL (80-110); HDL Cholesterol 61 mg/dL (40-60); HEMOLYSIS < 15 (0-50); LDL Cholesterol Calculated 61 mg/dL (<100); Potassium 4.4 mmol/L (3.4-5.1); Sodium 137 mmol/L (137-145); Total Protein 7.6 g/dL (6.3-8.2); Triglycerides 115 mg/dL (35-150)
[2020-09-09 13:59] LABS: HEMOLYSIS < 15 (0-50); Iron 85 ug/dL (37-170)
[2020-09-09 14:10] LABS: Percent Iron Saturation 19 % (15-50); Total Iron Binding Capacity 450 ug/dL (265-497); Transferrin 362 mg/dL (206-381)
== END ==
PROVIDERS: PCP Family Medicine; Referring Provider Specialist; Visit Provider Specialist
DX: I10 Essential (primary) hypertension (principal); E11.29 Type 2 diabetes mellitus with other diabetic kidney complication; E78.2 Mixed hyperlipidemia; D50.9 Iron deficiency anemia, unspecified
CPT/HCPCS: 36415; 80053; 80061; 83036; 83540; 83550; 83735; 85025

== ENCOUNTER → 2021-08-04 12:20 | Outpatient (CLI) | payer MEDICARE, SELFPAY ==
[2021-08-04 13:46] LABS: Add Manual Diff / Slide Review NO; Basophils Absolute Auto 100 /uL (0-100); Basophils Percent Auto 0.9 % (0-2); Eosinophils Absolute Auto 100 /uL (0-450); Eosinophils Percent Auto 1.9 % (2-4); Hematocrit 34.3 % (36-46); Hemoglobin 11.2 g/dL (12.0-16.0); Lymphocytes Absolute Auto 2600 /uL (1100-4500); Lymphocytes Percent Auto 33.5 % (25-40); Mean Corpuscular HGB Conc 32.6 % (30-36); Monocytes Absolute Auto 700 /uL (0-900); Neutrophils Absolute Auto 4200 /uL (1500-7000); Neutrophils Percent Auto 54.7 % (50-75); Platelet Count 277 X10^3/uL (150-400); Red Blood Cell Count 3.99 X10^6/uL (4.0-5.2); Red Cell Distribution Width 15.2 % (11.6-14.8); White Blood Cell Count 7.7 X10^3/uL (4.5-11.0)
[2021-08-04 13:56] LABS: Hemoglobin A1C% w Est Avg Glu 8.4 % (4.0-6.0)
[2021-08-04 14:21] LABS: Alanine Aminotransferase 21 IU/L (<35); Albumin 4.7 g/dL (3.5-5.0); Albumin Globulin Ratio 1.4 (1.0-2.8); Alkaline Phosphatase 92 U/L (38-126); Aspartate Aminotransferase 31 IU/L (14-36); Bilirubin Total 0.4 mg/dL (0.2-1.3); Blood Urea Nitrogen 15 mg/dL (7-17); Calcium 9.5 mg/dL (8.4-10.2); Carbon Dioxide 30 mmol/L (22-32); Chloride 100 mmol/L (98-107); Estimated Glomerular Filt Rate > 60.0 mL/min (>60); Globulin 3.3 g/dL (1.7-4.1); Glucose 127 mg/dL (80-110); HEMOLYSIS < 15 (0-50); Magnesium 1.9 mg/dL (1.6-2.3); Potassium 4.2 mmol/L (3.4-5.1); Sodium 136 mmol/L (137-145)
[2021-08-04 15:41] LABS: Creatinine Urine Random 37.9 mg/dL
[2021-08-04 15:51] LABS: Microalbumin Urine Random < 0.6 mg/dL (0-1.6)
== END ==
PROVIDERS: PCP Family Medicine; Referring Provider Family Medicine; Visit Provider Family Medicine
DX: I10 Essential (primary) hypertension (principal); E11.9 Type 2 diabetes mellitus without complications; E78.2 Mixed hyperlipidemia; D64.9 Anemia, unspecified
CPT/HCPCS: 80053; 82043; 82570; 83036; 83735; 85025

== ENCOUNTER → 2021-08-06 09:23 | Outpatient (CLI) | payer MEDICARE, SELFPAY ==
[2021-08-06 10:50] LABS: Ferritin 12 ng/mL (11-264)
== END ==
PROVIDERS: PCP Family Medicine; Visit Provider Family Medicine
DX: D64.9 Anemia, unspecified (principal)
CPT/HCPCS: 82728

== ENCOUNTER → 2021-10-15 14:32 | Outpatient (CLI) | payer MEDICARE, OTHER, SELFPAY ==
[2021-10-16 06:25] LABS: Fecal Immunochemical Test Negative (Negative)
== END ==
PROVIDERS: PCP Family Medicine; Referring Provider Family Medicine; Visit Provider Family Medicine
DX: E11.9 Type 2 diabetes mellitus without complications (principal); Z12.11 Encounter for screening for malignant neoplasm of colon
CPT/HCPCS: 82274

== ENCOUNTER → 2022-01-01 16:21 | Outpatient (CLI) | payer MEDICARE, OTHER, SELFPAY ==
[2022-01-01 17:50] LABS: Hematocrit 32.3 % (36-46); Hemoglobin 10.7 g/dL (12.0-16.0)
[2022-01-01 17:58] LABS: Hemoglobin A1C% w Est Avg Glu 9.3 % (4.0-6.0)
[2022-01-01 18:02] LABS: Alanine Aminotransferase 22 IU/L (<35); Albumin 4.2 g/dL (3.5-5.0); Albumin Globulin Ratio 1.4 (1.0-2.8); Alkaline Phosphatase 102 U/L (38-126); Aspartate Aminotransferase 27 IU/L (14-36); BUN Creatinine Ratio 33.8 (6-22); Bilirubin Total 0.2 mg/dL (0.2-1.3); Blood Urea Nitrogen 22 mg/dL (7-17); Calcium 8.9 mg/dL (8.4-10.2); Carbon Dioxide 26 mmol/L (22-32); Chloride 103 mmol/L (98-107); Estimated Glomerular Filt Rate > 60 mL/min (>60); Glucose 295 mg/dL (80-110); HEMOLYSIS 24 (0-50); Potassium 4.3 mmol/L (3.4-5.1); Sodium 135 mmol/L (137-145); Total Protein 7.2 g/dL (6.3-8.2)
[2022-01-01 19:15] LABS: Creatinine Urine Random 53.6 mg/dL
[2022-01-01 19:22] LABS: Microalbumi Creatinin Ratio Ur 14.9 ug/mg CR (<30); Microalbumin Urine Random 0.8 mg/dL (0-1.6)
== END ==
PROVIDERS: PCP Family Medicine; Referring Provider Family Medicine; Visit Provider Family Medicine
DX: E11.9 Type 2 diabetes mellitus without complications (principal); I10 Essential (primary) hypertension; I45.6 Pre-excitation syndrome
CPT/HCPCS: 36415; 80053; 82043; 82570; 83036; 85014; 85018

== ENCOUNTER → 2022-03-18 14:01 | Outpatient (CLI) | payer MEDICARE, OTHER, SELFPAY ==
--- NOTE | 2022-03-26 16:43 | DIAB.MNT ---
Initial Diabetes Medical Nutrition Therapy Assessment Name: Santosh Magdaleno Date: 03/17/22 Time:210-310p Dx: Type II Diabetes Provider: Tori Santosh presents for initial visit today. States she has had DM for 12 years with +FH of mother and brother. Recent HgA1c of 9.3%. Currently taking Januvia and Metformin. 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 Endorses weight gain over covid, about 19#. Prior to covid endorses HgA1c often 6-7%. Then during was 8-9%. Since covid she states she has been depressed. Feels she has been missing out on a lot of activities, ie movies, trade shows. Continues to be very careful of covid to protect her son. To manage stress: reads, calls someone Has recently reduced breakfast portions by half. Diet Recall: 830a: low carb milk, raisin toast, cottage cheese, sausage 1p: soup, pastry, bread or open faced sandwich 5p: 2 crackers with cheese 7p: 3-5 oz meat with salad and 1c starch 1030p: milk or cookies or chocolate Anthropometrics: Ht: 5'6.5 Wt: 191.6# per EMR Physical Activity: swims 3x per week for 30 mins. Active in caregiving daily. Considering walking [employer] since they go there for an activity for her son weekly. Self-Monitoring Blood Glucose: None. Does not have supplies. Last time she ordered and paid for strips out of pocket was one year ago. 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 Provided appropriate educational handouts. Discussed the following topics: Completed intake assessment. Discussed barriers to care. Pathophysiology of T2DM HgA1c, its correlation to blood glucose numbers, and rationale for goal Importance of self-monitoring, how often, and when to check. Suggested checking at different times to evaluate meals Plate Method, impact of macronutrients on blood sugar Recommended servings for carbohydrates at meals and snacks Role of physical activity and following provider guidelines for safety Created SMART goals for patient self-care and success. Goals: Discuss SMBG supplies with provider Walk [employer] 2x per week Follow-up: ERNIE GONZALEZ follow-up in 3-4 weeks Blanca Juarez RDN, [facility] Certified Diabetes Care and Diet Kitchen Cook P: [phone] Thank you for this referral
== END ==
PROVIDERS: PCP Family Medicine; Referring Provider Family Medicine; Visit Provider Family Medicine
DX: E11.9 Type 2 diabetes mellitus without complications (principal); Z79.84 Long term (current) use of oral hypoglycemic drugs; Z71.3 Dietary counseling and surveillance
CPT/HCPCS: 97802

== ENCOUNTER 2022-03-27 14:30 | Outpatient (RCR) | payer MEDICARE, OTHER, SELFPAY ==
--- NOTE | 2022-01-09 16:27 | PT.OIE ---
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) Past Medical History (Last Reviewed 02/26/20 @ 14:30 by Ivonne Merrill MD) Endometrial cancer Past Surgical History (Last Reviewed 02/26/20 @ 14:30 by Ivonne Merrill MD) H/O section History of knee replacement History of oophorectomy History of total abdominal hysterectomy and bilateral salpingo-oophorectomy Visit Care Team Role Provider Type [place] Valle MD Primary Care Provider Physician Specialty: [facility] Address: [address] [place] [address], [facility] Email: [email or web address] Maryellen Rosas DO Attending Provider Non-Staff Referring Provider Specialty: Urology Address: [address] [place] [address], [id number] Email: Physical Therapy Initial Evaluation PT-OP-A Visit Information Start: 12/30/21 15:05 Freq: Status: Active Protocol: Document 01/09/22 14:36 AMB (Rec: 01/09/22 15:39 AMB [id number]) Out-Patient Physical Therapy Visit Information Visit Information Visit Type Initial Evaluation Visit Start Time 14:30 Visit Stop Time 15:15 Total Visit Minutes 45 Visit Number 1 PT-OP-B Current Condition Start: 12/30/21 15:05 Freq: Status: Active Protocol: Document 01/09/22 14:36 AMB (Rec: 01/09/22 15:39 AMB [id number]) Current Condition History of Current Condition History of Current Condition Urgency of urine and fecal. Sometimes having 6 BMs in 2 hours. Had been taking immodium. Was having diarhea yesterday. Urinates every 2 hours. Does have a history of cystocele. Immodium seems to help with both urine and feces. Levering stool scale 4- 5. Does have urgency of feces. Does sometimes have difficulty sensing when having a bowel movement. 1 C- section. Way back when had chronic constipation, does have hemorrhoids. Hysterectomy- for endometrial cancer. Concerned about low back, was told she had disc issues years ago. Treatment Goals Patient/Caregiver Goals REduce severity of urgency. Sometimes maybe waiting a minute, sometimes 10 minutes for urinary urgency. Personal Factors Other Personal Factors That May Effect Hx , hysterectomy for Therapy/Recovery endometrial cancer, oophorectomy PT-OP-I Pelvic Floor Start: 12/30/21 15:05 Freq: Status: Active Protocol: Document 01/09/22 14:30 AMB (Rec: 01/14/22 16:04 AMB [id number]) Pelvic Floor Assessment Urine Pelvic Floor Surgery Yes: hysterectomy, oophorectomy, Urinary Symptoms Prolapse Leakage Size Large Leakage Cause Urge Leaks Per Day 5 Voiding Frequency 6x/day Nocturia 3 Urine Pad Type Depends Bowel Bowel Symptoms Fecal Leakage Other Bowel Symptoms diarrhea Bowel Movement Frequency up to 6x/day Levering Stool Chart Type 1-7 5 Levering Stool Chart Comments diarrhea at times, usually 4-5 PT-OP-T Assessment and Plan Start: 12/30/21 15:05 Freq: Status: Active Protocol: Document 01/09/22 14:30 AMB (Rec: 01/15/22 16:24 AMB [id number]) Physical Therapy Assessment Rehab Potential Rehabilitation Potential Good Evaluation Complexity Number of Personal Factors/Comorbidities 1-2 Number of Body Systems Impaired 3 Clinical Presentation at Evaluation Evolving Impairments Impairments Activity Tolerance,Sensation, Strength Goals Two Impairment Urgency Short Term Goal (STG) Santosh will be able to wait 5 minutes to void if needed without leaking. STG Duration 4 weeks Supervisor Pipe Manufacture Goal (LTG) Santosh will be able to contract her pelvic floor 5x in standing to reduce her urinary and fecal incontinence . LTG Duration 8 weeks One Impairment Continence Short Term Goal (STG) Santosh will move from sit to stand without leaking urine. STG Duration 4 weeks Care Home Goal (LTG) Santosh will be independent with a home exercise program to strengthen her pelvic floor to assist with urinary and fecal continence. LTG Duration 8 weeks Assessment Summary Assessment Santosh attends physical therapy with urinary incontinence since 2015 and fecal incontinence since 2019. She presents with significant urgency and frequency, not really stress incontinence. Can have many bowel movements in a row that are very urgent, sometimes has a hard time feeling that she is having a bowel movement if she is urinating. Does have history of prolapse, and a difficult time completely voiding urine without straining. She will benefit from physical therapy to strengthen her pelvic floor and further instruction in urge reduction techniques which were begun during evaluation. Physical Therapy Plan Frequency and Duration Frequency of Treatment 1x/Week Duration of Treatment 10 weeks Plan of Care Start Date 01/09/22 Plan of Care End Date 03/20/22 Therapeutic Interventions Therapeutic Interventions Home Exercise Program,Manual Therapy,Neuromuscular Re- education,Self-Care/Home Management,Therapeutic Activities,Therapeutic Exercises Modalities Biofeedback,Electric Stimulation Next Visit Focus/Plan Next Note Type Treatment Note Next Visit Plan Pelvic floor strength assessment and assessment of prolapse.
--- NOTE | 2022-01-09 16:28 | PT.OPPOC ---
Physical, Occupational & Speech Therapy At 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) Visit Care Team Role Provider Type [place] Valle MD Primary Care Provider Physician Specialty: Family Practice Address: [address] [place] [address], [place], [address] Email: [email or web address] Maryellen Rosas DO Attending Provider Non-Staff Referring Provider Specialty: Urology Address: [address] [place] [address], [id number] Email: Plan Of Care PT-OP-T Assessment and Plan Start: 12/30/21 15:05 Freq: Status: Active Protocol: Document 01/09/22 14:30 AMB (Rec: 01/15/22 16:24 AMB [id number]) Physical Therapy Assessment Rehab Potential Rehabilitation Potential Good Evaluation Complexity Number of Personal Factors/Comorbidities 1-2 Number of Body Systems Impaired 3 Clinical Presentation at Evaluation Evolving Impairments Impairments Activity Tolerance,Sensation, Strength Goals Two Impairment Urgency Short Term Goal (STG) Santosh will be able to wait 5 minutes to void if needed without leaking. STG Duration 4 weeks Nursing Home Goal (LTG) Santosh will be able to contract her pelvic floor 5x in standing to reduce her urinary and fecal incontinence . LTG Duration 8 weeks One Impairment Continence Short Term Goal (STG) Santosh will move from sit to stand without leaking urine. STG Duration 4 weeks Therapist Occupational Goal (LTG) Santosh will be independent with a home exercise program to strengthen her pelvic floor to assist with urinary and fecal continence. LTG Duration 8 weeks Assessment Summary Assessment Santosh attends physical therapy with urinary incontinence since 2015 and fecal incontinence since 2019. She presents with significant urgency and frequency, not really stress incontinence. Can have many bowel movements in a row that are very urgent, sometimes has a hard time feeling that she is having a bowel movement if she is urinating. Does have history of prolapse, and a difficult time completely voiding urine without straining. She will benefit from physical therapy to strengthen her pelvic floor and further instruction in urge reduction techniques which were begun during evaluation. Physical Therapy Plan Frequency and Duration Frequency of Treatment 1x/Week Duration of Treatment 10 weeks Plan of Care Start Date 01/09/22 Plan of Care End Date 03/20/22 Therapeutic Interventions Therapeutic Interventions Home Exercise Program,Manual Therapy,Neuromuscular Re- education,Self-Care/Home Management,Therapeutic Activities,Therapeutic Exercises Modalities Biofeedback,Electric Stimulation Next Visit Focus/Plan Next Note Type Treatment Note Next Visit Plan Pelvic floor strength assessment and assessment of prolapse. Plan of Care Dates Plan of Care Start Date 01/09/22 Plan of Care End Date 03/20/22 Electronically Signed by: Leann Lucas, PT 01/15/22 [id number] If you are in agreement with this Plan of Care, please return a signed and dated copy. I have reviewed this Plan of Care and certify that the skilled therapy services above are required to meet the patient?s needs. Physician Signature Date Printed Name and Credentials Clinical Instructor Signature Printed Name and Credentials
--- NOTE | 2022-01-16 22:10 | PT.OTN ---
Current Diagnoses Urge incontinence (01/16/22) Full incontinence of feces (01/16/22) Physical Therapy Treatment Note PT-OP-A Visit Information Start: 12/30/21 15:05 Freq: Status: Active Protocol: Document 01/16/22 14:32 AMB (Rec: 01/16/22 16:10 AMB [id number]) Out-Patient Physical Therapy Visit Information Visit Information Visit Type Treatment Note Visit Start Time 14:30 Visit Stop Time 15:15 Total Visit Minutes 45 Visit Number 2 PT-OP-B Current Condition Start: 12/30/21 15:05 Freq: Status: Active Protocol: Document 01/09/22 14:36 AMB (Rec: 01/09/22 15:39 AMB [id number]) Current Condition History of Current Condition History of Current Condition Urgency of urine and fecal. Sometimes having 6 BMs in 2 hours. Had been taking immodium. Was having diarheah yesterday. Urinates every 2 hours. Does have a history of cystocele. Immodium seems to help with both urine and feces. [place] stool scale 4- 5. Does have urgency of feces. Does sometimes have difficulty sensing when having a bowel movement. 1 C- section. Way back when had chronic constipation, does have hemherhoidds. Hysterctomy- for endometrial cancer. Concerned about low back, was told she had disc issues years ago. Treatment Goals Patient/Caregiver Goals REduce severity of urgency. Sometimes maybe waiting a minute, sometimes 10 minutes for urinary urgency. Personal Factors Other Personal Factors That May Effect Hx , hysterectomy for Therapy/Recovery endometrial cancer, oophorectomy PT-OP-C Subjective Start: 12/30/21 15:05 Freq: Status: Active Protocol: Document 01/16/22 14:32 AMB (Rec: 01/16/22 16:10 AMB [id number]) OP-PT Subjective Patient Comments Patient Comments Pt has been able to use the urge reduction technique successfully for urination. PT-OP-I Pelvic Floor Start: 12/30/21 15:05 Freq: Status: Active Protocol: Document 01/09/22 14:30 AMB (Rec: 01/14/22 16:04 AMB [id number]) Pelvic Floor Assessment Urine Pelvic Floor Surgery Yes: hysterectomy, oophorectomy, Urinary Symptoms Prolapse Leakage Size Large Leakage Cause Urge Leaks Per Day 5 Voiding Frequency 6x/day Nocturia 3 Urine Pad Type Depends Bowel Bowel Symptoms Fecal Leakage Other Bowel Symptoms diarrhea Bowel Movement Frequency up to 6x/day [place] Stool Chart Type 1-7 5 [place] Stool Chart Comments diarrhea at times, usually 4-5 PT-OP-Q Treatments Start: 12/30/21 15:05 Freq: Status: Active Protocol: Document 01/16/22 14:30 AMB (Rec: 01/17/22 22:10 AMB [id number]) Therapeutic Exercises Supine Exercises quick flicks, vs long holds Comments avoiding excessive TA usage Sitting Exercises roll in roll out Side bilateral Reps/Minutes 10 Comments cued pelvic floor, breathing, coordination PT-OP-T Assessment and Plan Start: 12/30/21 15:05 Freq: Status: Active Protocol: Document 01/16/22 14:32 AMB (Rec: 01/16/22 16:10 AMB [id number]) Physical Therapy Assessment Goals Two Impairment Urgency Short Term Goal (STG) Santosh will be able to wait 5 minutes to void if needed without leaking. STG Duration 4 weeks Senior Living Goal (LTG) Santosh will be able to contract her pelvic floor 5x in standing to reduce her urinary and fecal incontinence . LTG Duration 8 weeks One Impairment Continence Short Term Goal (STG) Santosh will move from sit to stand without leaking urine. STG Duration 4 weeks Senior Living Goal (LTG) Santosh will be independent with a home exercise program to strengthen her pelvic floor to assist with urinary and fecal continence. LTG Duration 8 weeks Assessment Summary Assessment Pt is noticing improvement in urgency with urination. Had not really tried with fecal urgency, as immodium seems to be helping. Cued to reduce abdominal contraction, as pt was doing more with TA than pelvic floor. Physical Therapy Plan Next Visit Focus/Plan Next Note Type Treatment Note Next Visit Plan Progress HEP for pelvic floor strengthening
--- NOTE | 2022-01-23 20:54 | PT.OTN ---
Current Diagnoses Urge incontinence (01/23/22) Full incontinence of feces (01/23/22) Physical Therapy Treatment Note PT-OP-A Visit Information Start: 12/30/21 15:05 Freq: Status: Active Protocol: Document 01/23/22 14:38 AMB (Rec: 01/23/22 16:09 AMB [id number]) Out-Patient Physical Therapy Visit Information Visit Information Visit Type Treatment Note Visit Start Time 14:30 Visit Stop Time 15:15 Total Visit Minutes 45 Visit Number 3 PT-OP-B Current Condition Start: 12/30/21 15:05 Freq: Status: Active Protocol: Document 01/09/22 14:36 AMB (Rec: 01/09/22 15:39 AMB [id number]) Current Condition History of Current Condition History of Current Condition Urgency of urine and fecal. Sometimes having 6 BMs in 2 hours. Had been taking immodium. Was having diarheah yesterday. Urinates every 2 hours. Does have a history of cystocele. Immodium seems to help with both urine and feces. [place] stool scale 4- 5. Does have urgency of feces. Does sometimes have difficulty sensing when having a bowel movement. 1 C- section. Way back when had chronic constipation, does have hemherhoidds. Hysterctomy- for endometrial cancer. Concerned about low back, was told she had disc issues years ago. Treatment Goals Patient/Caregiver Goals REduce severity of urgency. Sometimes maybe waiting a minute, sometimes 10 minutes for urinary urgency. Personal Factors Other Personal Factors That May Effect Hx , hysterectomy for Therapy/Recovery endometrial cancer, oophorectomy PT-OP-C Subjective Start: 12/30/21 15:05 Freq: Status: Active Protocol: Document 01/23/22 14:38 AMB (Rec: 01/23/22 16:09 AMB [id number]) OP-PT Subjective Patient Comments Patient Comments Pt is able to sleep longer without waking due to urge, but then when she does wake she leaks a lot on the way to the toilet. PT-OP-I Pelvic Floor Start: 12/30/21 15:05 Freq: Status: Active Protocol: Document 01/09/22 14:30 AMB (Rec: 01/14/22 16:04 AMB [id number]) Pelvic Floor Assessment Urine Pelvic Floor Surgery Yes: hysterectomy, oophorectomy, Urinary Symptoms Prolapse Leakage Size Large Leakage Cause Urge Leaks Per Day 5 Voiding Frequency 6x/day Nocturia 3 Urine Pad Type Depends Bowel Bowel Symptoms Fecal Leakage Other Bowel Symptoms diarrhea Bowel Movement Frequency up to 6x/day [place] Stool Chart Type 1-[address] [place] Stool Chart Comments diarrhea at times, usually 4-5 PT-OP-Q Treatments Start: 12/30/21 15:05 Freq: Status: Active Protocol: Document 01/23/22 14:30 AMB (Rec: 01/24/22 20:54 AMB [id number]) Therapeutic Exercises Supine Exercises quick flicks, vs long holds Supine Exercise Name seated today HEP 3x/day Comments avoiding excessive TA usage Self-Care/Home Management Treatment Education Other Education Pt considering timed voids to avoid excessive urgency when getting up to use bathroom, educate in avoid JIC, urgency reduction during the day, bladder irritants. PT-OP-T Assessment and Plan Start: 12/30/21 15:05 Freq: Status: Active Protocol: Document 01/23/22 14:38 AMB (Rec: 01/23/22 16:09 AMB [id number]) Physical Therapy Assessment Goals Two Impairment Urgency Short Term Goal (STG) Santosh will be able to wait 5 minutes to void if needed without leaking. STG Duration 4 weeks Care Home Goal (LTG) Santosh will be able to contract her pelvic floor 5x in standing to reduce her urinary and fecal incontinence . LTG Duration 8 weeks One Impairment Continence Short Term Goal (STG) Santosh will move from sit to stand without leaking urine. STG Duration 4 weeks Paint Roller Winder Goal (LTG) Santosh will be independent with a home exercise program to strengthen her pelvic floor to assist with urinary and fecal continence. LTG Duration 8 weeks Assessment Summary Assessment Encouraged pt to try to stop drinking large quantities of water right before bed (which she is doing as a part of her diet). Continue urge reduction, did give long holds and quick flicks as HEP.
--- NOTE | 2022-01-30 15:26 | PT.OTN ---
Current Diagnoses Urge incontinence (01/30/22) Full incontinence of feces (01/30/22) Physical Therapy Treatment Note PT-OP-A Visit Information Start: 12/30/21 15:05 Freq: Status: Active Protocol: Document 01/30/22 13:45 AMB (Rec: 01/30/22 14:37 AMB [id number]) Out-Patient Physical Therapy Visit Information Visit Information Visit Type Treatment Note Visit Start Time 13:45 Visit Stop Time 14:30 Total Visit Minutes 45 Visit Number 4 PT-OP-B Current Condition Start: 12/30/21 15:05 Freq: Status: Active Protocol: Document 01/09/22 14:36 AMB (Rec: 01/09/22 15:39 AMB [id number]) Current Condition History of Current Condition History of Current Condition Urgency of urine and fecal. Sometimes having 6 BMs in 2 hours. Had been taking immodium. Was having diarheah yesterday. Urinates every 2 hours. Does have a history of cystocele. Immodium seems to help with both urine and feces. [place] stool scale 4- 5. Does have urgency of feces. Does sometimes have difficulty sensing when having a bowel movement. 1 C- section. Way back when had chronic constipation, does have hemherhoidds. Hysterctomy- for endometrial cancer. Concerned about low back, was told she had disc issues years ago. Treatment Goals Patient/Caregiver Goals REduce severity of urgency. Sometimes maybe waiting a minute, sometimes 10 minutes for urinary urgency. Personal Factors Other Personal Factors That May Effect Hx , hysterectomy for Therapy/Recovery endometrial cancer, oophorectomy PT-OP-C Subjective Start: 12/30/21 15:05 Freq: Status: Active Protocol: Document 01/30/22 13:45 AMB (Rec: 01/30/22 14:37 AMB [id number]) OP-PT Subjective Patient Comments Patient Comments Has not been drinking before she goes to bed. So she has been able to sleep longer. Did have one urinary leak. PT-OP-I Pelvic Floor Start: 12/30/21 15:05 Freq: Status: Active Protocol: Document 01/09/22 14:30 AMB (Rec: 01/14/22 16:04 AMB [id number]) Pelvic Floor Assessment Urine Pelvic Floor Surgery Yes: hysterectomy, oophorectomy, Urinary Symptoms Prolapse Leakage Size Large Leakage Cause Urge Leaks Per Day 5 Voiding Frequency 6x/day Nocturia 3 Urine Pad Type Depends Bowel Bowel Symptoms Fecal Leakage Other Bowel Symptoms diarrhea Bowel Movement Frequency up to 6x/day [place] Stool Chart Type 1-7 5 [place] Stool Chart Comments diarrhea at times, usually 4-5 PT-OP-Q Treatments Start: 12/30/21 15:05 Freq: Status: Active Protocol: Document 01/30/22 13:45 AMB (Rec: 01/30/22 14:37 AMB [id number]) Therapeutic Exercises Supine Exercises quick flicks, vs long holds Supine Exercise Name seated today HEP 3x/day Comments avoiding excessive TA usage Sitting Exercises roll in roll out Side bilateral Reps/Minutes 10 Comments cued pelvic floor, breathing, coordination Standing Exercises sit to stand Comments contract pelvic floor- challenging mini squat Comments pelvic floor stability 1 Standing Exercise Name WBOS vs modified tandem Reps/Minutes 5 hold PT-OP-T Assessment and Plan Start: 12/30/21 15:05 Freq: Status: Active Protocol: Document 01/30/22 13:45 AMB (Rec: 01/30/22 14:37 AMB [id number]) Physical Therapy Assessment Goals Two Impairment Urgency Short Term Goal (STG) Santosh will be able to wait 5 minutes to void if needed without leaking. STG Duration 4 weeks Vehicle Controls Engineer Goal (LTG) Santosh will be able to contract her pelvic floor 5x in standing to reduce her urinary and fecal incontinence . LTG Duration 8 weeks One Impairment Continence Short Term Goal (STG) Santosh will move from sit to stand without leaking urine. STG Duration MET [facility] Goal (LTG) Santosh will be independent with a home exercise program to strengthen her pelvic floor to assist with urinary and fecal continence. LTG Duration 8 weeks Assessment Summary Assessment Santosh is reporting improved strength and reduced leaking, although is still having some leaking. Would encourage more strengthening with functional exercise (lifting, sit to stand) over the next week. Physical Therapy Plan Next Visit Focus/Plan Next Note Type Treatment Note Next Visit Plan Progress HEP for pelvic floor strengthening-- review sit to stand with pelvic floor strengthening
--- NOTE | 2022-03-27 16:00 | PT.OTN ---
Current Diagnoses Urge incontinence (03/27/22) Full incontinence of feces (03/27/22) Physical Therapy Treatment Note PT-OP-A Visit Information Start: 12/30/21 15:05 Freq: Status: Active Protocol: Document 03/27/22 14:36 AMB (Rec: 03/27/22 15:26 AMB [id number]) Out-Patient Physical Therapy Visit Information Visit Information Visit Type Treatment Note Visit Start Time 14:30 Visit Stop Time 15:15 Total Visit Minutes 45 Visit Number 5 PT-OP-B Current Condition Start: 12/30/21 15:05 Freq: Status: Active Protocol: Document 01/09/22 14:36 AMB (Rec: 01/09/22 15:39 AMB [id number]) Current Condition History of Current Condition History of Current Condition Urgency of urine and fecal. Sometimes having 6 BMs in 2 hours. Had been taking immodium. Was having diarheah yesterday. Urinates every 2 hours. Does have a history of cystocele. Immodium seems to help with both urine and feces. [place] stool scale 4- 5. Does have urgency of feces. Does sometimes have difficulty sensing when having a bowel movement. 1 C- section. Way back when had chronic constipation, does have hemherhoidds. Hysterctomy- for endometrial cancer. Concerned about low back, was told she had disc issues years ago. Treatment Goals Patient/Caregiver Goals REduce severity of urgency. Sometimes maybe waiting a minute, sometimes 10 minutes for urinary urgency. Personal Factors Other Personal Factors That May Effect Hx , hysterectomy for Therapy/Recovery endometrial cancer, oophorectomy PT-OP-C Subjective Start: 12/30/21 15:05 Freq: Status: Active Protocol: Document 03/27/22 14:36 AMB (Rec: 03/27/22 15:26 AMB [id number]) OP-PT Subjective Patient Comments Patient Comments Pt reports decreased frequency need for urinating. Does not night time needs her Depends for sure. PT-OP-I Pelvic Floor Start: 12/30/21 15:05 Freq: Status: Active Protocol: Document 01/09/22 14:30 AMB (Rec: 01/14/22 16:04 AMB [id number]) Pelvic Floor Assessment Urine Pelvic Floor Surgery Yes: hysterectomy, oophorectomy, Urinary Symptoms Prolapse Leakage Size Large Leakage Cause Urge Leaks Per Day 5 Voiding Frequency 6x/day Nocturia 3 Urine Pad Type Depends Bowel Bowel Symptoms Fecal Leakage Other Bowel Symptoms diarrhea Bowel Movement Frequency up to 6x/day [place] Stool Chart Type 1-7 5 [place] Stool Chart Comments diarrhea at times, usually 4-5 PT-OP-Q Treatments Start: 12/30/21 15:05 Freq: Status: Active Protocol: Document 03/27/22 14:30 AMB (Rec: 03/29/22 11:03 AMB [id number]) Therapeutic Exercises Supine Exercises quick flicks, vs long holds Supine Exercise Name seated today HEP 3x/day Comments avoiding excessive TA usage Standing Exercises sit to stand Comments contract pelvic floor- challenging 1 Standing Exercise Name WBOS vs modified tandem Reps/Minutes 5 hold PT-OP-T Assessment and Plan Start: 12/30/21 15:05 Freq: Status: Active Protocol: Document 03/27/22 14:36 AMB (Rec: 03/27/22 15:26 AMB [id number]) Physical Therapy Assessment Goals Two Impairment Urgency Short Term Goal (STG) Santosh will be able to wait 5 minutes to void if needed without leaking. STG Duration MET Group Home Goal (LTG) Santosh will be able to contract her pelvic floor 5x in standing to reduce her urinary and fecal incontinence . LTG Duration MET One Impairment Continence Short Term Goal (STG) Santosh will move from sit to stand without leaking urine. STG Duration MET Dietary Worker Goal (LTG) Santosh will be independent with a home exercise program to strengthen her pelvic floor to assist with urinary and fecal continence. LTG Duration MET Assessment Summary Assessment Santosh feels that her metformin is having a large impact on her fecal urgency. She is doing much better with her urinary urgency, and decreasing her nocturia, but does find it difficult to do her exercises on a regular basis. Encouraged pt in finding times throughout her day: when washing hands, waiting for the microwave or coffee, with moving from sit to stand, to work on exercises . Pt feels ready for d/c. Physical Therapy Plan Discharge Physical Therapy Discharge Reasons Goals Met
== END 2022-03-31 10:45 | disposition home or self-care (01) ==
LOC: PHYS 14:30
PROVIDERS: PCP Family Medicine; Referring Provider Urology; Visit Provider Urology
DX: N39.41 Urge incontinence (principal); R15.9 Full incontinence of feces
CPT/HCPCS: 97110; 97162; 97535

== ENCOUNTER → 2022-04-08 13:36 | Outpatient (CLI) | payer MEDICARE, OTHER, SELFPAY ==
--- NOTE | 2022-04-09 15:44 | DIAB.MNTFU ---
Follow-up Diabetes Medical Nutrition Therapy Assessment Name: Santosh Magdaleno Date: 04/08/22 Time: 145-230p Dx: Type II Diabetes Santosh presents for follow-up regarding T2DM. Reports ordering SMBG supplies Wednesday by PCP office. Has not started SMBG yet. Interested in CGM to avoid many finger pricks, but unlikely insurance would cover. Endorses having to take Metformin 4x per day to avoid GI upset. States she often forgets a dose during the day. May benefit from XR Metformin. Encouraged her to discuss further with provider. Eating take out or at restaurant 2x per week minimum. Per diet recall, some meals result in over 100g CHO in sitting (muffin, soup, bread). Open to making changes to food ordered. Anthropometrics: Ht: 5'6.5 Wt: 189.6# per EMR (down from last wt of 191.6#) Physical Activity: swims 3x per week for 30 mins. Active in caregiving daily. Has not started walking twice per week, but would like to continue this goal. Self-Monitoring Blood Glucose: None yet. Plans to filler picker supplies. States she does not find it helpful to check FBG and pc. Historically has checked q 2 hours to determine trends. 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 Provided appropriate educational handouts. Discussed the following topics: Benefits of FBG and pc readings Coverage for CGM and out of pocket expense Potential for XR Metformin with GI upset Eating out strategies Na in take out foods CHO counting review Physical activity plan and progress Created SMART goals for patient self-care and success. Goals: Discuss SMBG supplies with provider- met Walk [place] 2x per week- in progress Discuss XR Metformin with PCP- new Try lower carb options when eating out- new Follow-up: ERNIE GONZALEZ follow-up in 3-4 weeks Blanca Juarez RDN, [facility] Certified Diabetes Care and In Process Inspector P: [phone] Thank you for this referral
== END ==
PROVIDERS: PCP Family Medicine; Referring Provider Family Medicine; Visit Provider Family Medicine
DX: E11.9 Type 2 diabetes mellitus without complications (principal); Z71.3 Dietary counseling and surveillance; Z79.84 Long term (current) use of oral hypoglycemic drugs
CPT/HCPCS: 97803

== ENCOUNTER → 2022-07-01 14:50 | Outpatient (CLI) | payer MEDICARE, OTHER, SELFPAY ==
--- NOTE | 2022-07-22 17:00 | DIAB.FU ---
Follow-up Diabetes Education Assessment Name: Santosh Magdaleno Date: 07/01/22 Time: 3-4 Dx: Type II Diabetes Santosh presents today for diabetes follow-up. Reports she recently started SMBG since picking up supplies. Does not like the lancing device that came with her meter, difficult to reload device per report. Interested in CGM, though not currently on insulin so not likely covered by insurance. Tried choosing lower carb options when eating out as discussed. Main barrier is that these options are not sometimes available per report. Diet recall indicates inconsistent carb intake (sometimes high or low). Some evenings having carb based snack right after dinner (which also has carbs), likely causing hyperglycemia. Physical Activity: Continues swim 3x per week, trying to increase time. Currently swimming 35-40 mins with a goal of 45 min. reports inconsistent walking, with main barriers as knee pain and weather. Plans to buy new shoes to hopefully help with knee pain. Self-Monitoring Blood Glucose: Limited SMBG results yet. Low carb breakfast today resulted in <180mg/dl after breakfast, in goal; however FBG this morning elevated. Slightly elevated BG last night 2 hr after dinner with a reported 40g CHO. Endorses feeling shaky at 134mg/dl today pre lunch. Likely r/t h/o hyperglycemia. Date Pre Post Pre Post Pre Post HS 06/30 184 07/01 164 171 134 shaky Diabetes Medications: 100mg Januvia 500mg Metformin 4 x per day Pertinent Labs: Reports POC HgA1c of 7.3% or 7.7% ; previous hgA1c 12/2021 9.3% (up from 8.4%) Past Medical History: (Last Reviewed 02/26/20 @ 14:30 by Ivonne Merrill MD) Endometrial cancer Intervention: This participant was very receptive. Provided appropriate educational handouts. Discussed the following topics: Recent blood sugar results and trends CGM benefits and limitations and coverage Options for lancing devices Meal timing to reduce hyperglycemia s/s of lows and how the body may react to lower than usual BG Review of general nutrition recommendations and current intake Physical activity plan and impact on blood sugars Created SMART goals for patient self-care and success. Goals: Discuss XR Metformin with PCP- not met Try lower carb options when eating out- met/in progress Try One Touch lancing device-new Wait 3 hours between meals/snacks- new Follow-up: [facility]N [facility] follow-up 1:1 next month and she is interested in DSME classes. Blanca Juarez RDN, [facility] Certified Diabetes Care and Environmental Services Assistant P: [phone] Thank you for this referral
== END ==
PROVIDERS: PCP Family Medicine; Referring Provider Family Medicine; Visit Provider Family Medicine
DX: E11.9 Type 2 diabetes mellitus without complications (principal); Z71.3 Dietary counseling and surveillance; Z79.84 Long term (current) use of oral hypoglycemic drugs
CPT/HCPCS: G0108

== ENCOUNTER → 2022-08-04 09:32 | Outpatient (CLI) | payer MEDICARE, OTHER, SELFPAY ==
--- NOTE | 2022-08-05 10:24 | DIAB.FU ---
Addendum entered by Blanca Juarez 08/05/22 11:32: Time 940-12 Original Note: Diabetes Education Class Series: Diabetes and Nutrition Name: Santosh Magdaleno Date: 08/04/22 Time: 930a-12p Santosh presents for class 1 of 3 for DSME. States she has not been happy about SMBG results. States her clothes feel looser and thinks she has lost some wt. Has been working on increasing exercise. Class topics covered: ? Debunk nutrition myths and discuss how to sustain healthy eating long-term through moderation and variety ? Define macronutrients and determine their impact on blood sugars ? Discuss macronutrient pairing, Plate Method, and carb counting ? Review general recommendations for carbohydrates ? Practice label reading ? Discuss the role of fiber in diabetes and provide examples of sources ? Review heart health nutrition: fats, fiber, and sodium ? Determine recommendations for grocery shopping and eating out ? Discuss alcohol recommendations ? Review the role of substitute sugars in diabetes management ? Set SMART goals Goal Set: Add veggies to meals 2x per day Precut/precook veggies for the week Follow-up: Diabetes Physiology and Medication Class in one week Blanca Juarez RDN, [facility] Registered Dietitian, Certified Diabetes Care and Airport Maintenance Chief [phone] [email or web address]
== END ==
PROVIDERS: Family Provider Family Medicine; PCP Family Medicine; Referring Provider Family Medicine
DX: E11.9 Type 2 diabetes mellitus without complications (principal); Z71.3 Dietary counseling and surveillance; Z79.84 Long term (current) use of oral hypoglycemic drugs
CPT/HCPCS: G0109

== ENCOUNTER → 2022-08-11 09:29 | Outpatient (CLI) | payer MEDICARE, OTHER, SELFPAY ==
--- NOTE | 2022-08-14 11:23 | DIAB.FU ---
Diabetes Education Class Series: Diabetes Physiology and Medications Name: Santosh Magdaleno Date: 08/11/22 Time: 940a-12p Santosh presents for class 2 or 3 for DSME. Reports she has added veggies to each meal except breakfast successfully. Has questions today regarding BG goals and HgA1c. Class topics covered: ? Diabetes pathophysiology ? Discuss different types of diabetes ? Review criteria for diagnosing diabetes ? Review HgA1c measurement and associated blood sugars ? Review blood sugar monitoring safety, technique, and goals ? Discuss ways to reduce complications associated with diabetes, includes microvascular and macrovascular complications ? Review diabetes medications types, action, and side effects ? Health care visits recommended for people with T2DM ? Immunization recommended for people with T2DM ? SMART goals review Goal Set: Prep veggies ahead of time. Follow-up: Diabetes Lifestyle and Ongoing Support Class next week Blanca Juarez RDN, [facility] Registered Dietitian, Certified Diabetes Care and Data Entry Operator [phone] [email or web address]
== END ==
PROVIDERS: Family Provider Family Medicine; PCP Family Medicine; Referring Provider Family Medicine; Visit Provider Family Medicine
DX: E11.9 Type 2 diabetes mellitus without complications (principal); Z71.3 Dietary counseling and surveillance
CPT/HCPCS: G0109

== ENCOUNTER → 2022-08-18 09:28 | Outpatient (CLI) | payer MEDICARE, OTHER, SELFPAY ==
--- NOTE | 2022-09-11 10:29 | DIAB.FU ---
Diabetes Education Class Series: Diabetes Lifestyle Change and Ongoing Support Name: Santosh Magdaleno Date: 08/18/22 Time: [id number] Working on more physical activity and weight loss goals. Class topics covered: ? Discuss the difference between physical activity and exercise ? Determine physical activity benefits and impact on diabetes ? Review physical activity recommendations and safety ? Discuss emergency preparedness ? Discuss diabetes and emotions (diabetes burnout/distress) ? Review and practice stress management techniques ? Review support groups and community resources ? Discuss the role of family support in diabetes care ? What is going well? Challenges of diabetes? ? Set SMART goals Follow-up: 1:1 visit follow-up Blanca Juarez RDN, [facility] Registered Dietitian, Certified Diabetes Care and Photo Retoucher [phone] [email or web address]
== END ==
PROVIDERS: Family Provider Family Medicine; PCP Family Medicine; Referring Provider Family Medicine; Visit Provider Family Medicine
DX: E11.9 Type 2 diabetes mellitus without complications (principal); Z71.3 Dietary counseling and surveillance
CPT/HCPCS: G0108

== ENCOUNTER → 2022-09-02 13:49 | Outpatient (CLI) | payer MEDICARE, OTHER, SELFPAY ==
[2022-09-02 15:45] LABS: Alanine Aminotransferase 23 IU/L (<35); Albumin 4.1 g/dL (3.5-5.0); Albumin Globulin Ratio 1.4 (1.0-2.8); Alkaline Phosphatase 101 U/L (38-126); Aspartate Aminotransferase 27 IU/L (14-36); BUN Creatinine Ratio 26.2 (6-22); Bilirubin Total 0.3 mg/dL (0.2-1.3); Blood Urea Nitrogen 17 mg/dL (7-17); Calcium 9.5 mg/dL (8.4-10.2); Carbon Dioxide 27 mmol/L (22-32); Chloride 100 mmol/L (98-107); Estimated Glomerular Filt Rate > 60 mL/min (>60); Globulin 2.9 g/dL (1.7-4.1); Glucose 122 mg/dL (80-110); HEMOLYSIS < 15 (0-50); Magnesium 1.8 mg/dL (1.6-2.3); Potassium 4.4 mmol/L (3.4-5.1); Sodium 137 mmol/L (137-145)
[2022-09-02 17:10] LABS: Rheumatoid Factor < 8.6 IU/mL (<12.0)
[2022-09-04 16:36] LABS: CCP Antibodies IgG/IgA <1 units (0-19)
[2022-09-05 12:28] LABS: Cholesterol, Total 130 mg/dL (100-199); HDL-Cholesterol 59 mg/dL (>39); HDL-Particle (Total) 34.1 umol/L (>=30.5); LDL Particle 633 nmol/L (<1000); LDL-Cholsterol 51 mg/dL (0-99); LP-IR Score 41 (<=45); Small LDL- Particle 296 nmol/L (<=527); Triglycerides 113 mg/dL (0-149)
== END ==
PROVIDERS: Family Provider Family Medicine; PCP Family Medicine; Referring Provider Specialist; Visit Provider Specialist
DX: I10 Essential (primary) hypertension (principal); E78.2 Mixed hyperlipidemia; I47.1 Supraventricular tachycardia; M25.50 Pain in unspecified joint
CPT/HCPCS: 36415; 80053; 80061; 83704; 83735; 86200; 86430

== ENCOUNTER → 2022-10-28 14:46 | Outpatient (CLI) | payer MEDICARE, OTHER, SELFPAY ==
--- NOTE | 2022-11-12 15:50 | DIAB.FU ---
Continuous Glucose Monitor (CGM) Diabetes Education Name: Santosh Magdaleno Date: 10/28/22 Time: 3-4p Santosh presents with personal CGm, Dexcom G7. Purchased out of pocket. Wants to wear a CGM regularly until BG are better managed, then may cut down to 1x per month due to cost. Endorses some diabetes fatigue/distress. Feels it is consuming her life. Reports SMBG fasting results in the 170s consistently. Aiming for one new good behavior per week. Avoiding sweets. Choosing sf mocha. ER Metformin going well per report. Wants in incorporate elliptical into activity. Cont swimming. Has questions on CGM use and placement. Brought all necessary equipment. Interventions: ? Reviewed CGM use and equipment ? Discussed when to check blood sugars using finger stick ? Reviewed high and low blood sugar signs/symptoms and treatment options ? Provided education for self-administration of CGM placement ? Educated patient on alarm settings ? Discussed when to replace equipment and disposal Follow-up: 2 weeks Blanca Juarez RDN, [facility] Registered Dietitian, Certified Diabetes Care and Scale Expert [phone] [email or web address]
== END ==
PROVIDERS: Family Provider Family Medicine; PCP Family Medicine; Referring Provider Family Medicine; Visit Provider Family Medicine
DX: E11.9 Type 2 diabetes mellitus without complications (principal); Z71.3 Dietary counseling and surveillance
CPT/HCPCS: 95249

== ENCOUNTER → 2022-11-11 15:54 | Outpatient (CLI) | payer MEDICARE, OTHER, SELFPAY ==
--- NOTE | 2022-11-12 15:56 | DIAB.FU ---
Follow-up Diabetes Education Assessment Name: Santosh Magdaleno Date: 11/11/22 Time: 410-5p Dx: Type II Diabetes Santosh presents for follow-up DM visit. Completed CGM wear for the last two weeks. Had some sensor issues, called Dexcom, received new sensor. Needs assistance placing the adhesive today. Data from CGM indicates pretty consistent BG >150mg/dl. After eating any carbs BG rises >180mg/dl, even small portions. She expresses concerns for her longevity, especially since she cares for her adult son. Seems very motivated to manage DM. She has been avoiding most carbs due to glucose excursions, but still has room for improvement in BG. Could increase activity, may benefit from additional DM medication. Has not seen endo. Plans to ask provider for Gisela dewitt referral. Saw eye glass frame polisher without concern, though reports some potential reduced distance vision. Has questions today about Ozempic versus insulin. Physical Activity: Continues swimming three times per week. Some walks inconsistently. Self-Monitoring Blood Glucose: Overnight and FBG elevated consistently per CGM data. OFten 150-180mg/dl. After food intake raises 180-260mg/dl. After walks BG can be reduced to the 130s mg/dl. Swim does not seem to impact BG. 14 day data: Avg BG 171 mg/dl Time in range: 3% very high 28% high 69% in range 0% low or very low Diabetes Medications: 100mg Januvia 1000mg BID Metformin Pertinent Labs: HgA1c 9.6% 07/2022 9.3% 12/2021 Past Medical History: (Last Reviewed 02/26/20 @ 14:30 by Ivonne Merrill MD) Endometrial cancer Intervention: This participant was very receptive. Provided appropriate educational handouts. Discussed the following topics: Recent blood sugar results and trends Instructed on how to self place adhesives Medication management: different DM options (oral and injectables). Reviewed pros/cons and affordability. Review of general nutrition recommendations and current intake Physical activity plan and impact on blood sugars Prevention of complications Created SMART goals for patient self-care and success. Goals: Discuss med options with PCP this week Incorporate consistent walks Follow-up: ERNIE CDCES follow-up prn at this time. If she starts a new med and would like instruction asked her to call/message this week for appt next week. Plans to have f/u with endo, which was encouraged. Blanca Juarez RDN, [facility] Certified Diabetes Care and Eastern Philosophy Professor P: [phone] Thank you for this referral
== END ==
PROVIDERS: Family Provider Family Medicine; PCP Family Medicine; Referring Provider Family Medicine; Visit Provider Family Medicine
DX: E11.9 Type 2 diabetes mellitus without complications (principal); Z79.84 Long term (current) use of oral hypoglycemic drugs; Z71.3 Dietary counseling and surveillance
CPT/HCPCS: G0108

== ENCOUNTER → 2022-12-15 16:13 | Outpatient (CLI) | payer MEDICARE, OTHER, SELFPAY | PROVIDERS: Family Provider Family Medicine; PCP Family Medicine; Referring Provider Family Medicine; Visit Provider Family Medicine | DX: E11.9 Type 2 diabetes mellitus without complications (principal) | CPT/HCPCS: 36415; 83036 ==

== ENCOUNTER → 2023-01-21 15:58 | Outpatient (CLI) | payer MEDICARE, OTHER, SELFPAY ==
[2023-01-27 06:40] LABS: Percent Free Testosterone 2.43 % (0.50-2.80); Testosterone Free 0.18 ng/dL (0.10-0.85); Testosterone Total 7.6 ng/dL (7.0-40.0)
== END ==
PROVIDERS: Family Provider Family Medicine; PCP Family Medicine; Referring Provider Family Medicine; Visit Provider Family Medicine
DX: M62.50 Muscle wasting and atrophy, not elsewhere classified, unspecified site (principal)
CPT/HCPCS: 36415; 84402; 84403

== ENCOUNTER → 2023-04-21 12:33 | Outpatient (CLI) | payer MEDICARE, OTHER, SELFPAY ==
--- NOTE | 2023-04-21 12:35 | DI.RAD.S_ITS ---
PROCEDURE: XR CHEST 2V INDICATIONS: Cough TECHNIQUE: 2 views of the chest were acquired. COMPARISON: [facility], CR, XR CHEST 1V, 07/13/2019, 12:28. FINDINGS: Surgical changes and devices: None. Lungs and pleura: Lungs are clear. No pleural effusions or pneumothorax. Mediastinum: Mediastinal contours are normal. Heart size is normal. Bones and chest wall: No suspicious bony abnormalities. Soft tissues appear unremarkable. IMPRESSION: No acute cardiopulmonary abnormality is seen. Dictated by: Jaylen Hudson M.D. on 04/21/2023 at 13:25 Approved by: Jaylen Hudson M.D. on 04/21/2023 at 13:31
== END ==
PROVIDERS: Family Provider Family Medicine; PCP Family Medicine; Referring Provider Nurse Practitioner Family; Visit Provider Nurse Practitioner Family
DX: R05.9 Cough, unspecified (principal)
CPT/HCPCS: 71046

== ENCOUNTER → 2023-12-27 14:18 | Outpatient (CLI) | payer MEDICARE, OTHER, SELFPAY ==
--- NOTE | 2023-12-27 14:19 | DI.US.S_ITS ---
PROCEDURE: US PELVIC COMPLETE INDICATIONS: Left lower quadrant pain TECHNIQUE: Real-time scanning was performed of the pelvic organs, with image documentation. Additional endovaginal scanning was necessary due to incomplete visualization of the adnexal and endometrial structures by transabdominal scanning. COMPARISON: None. FINDINGS: Uterus: Surgically absent. The vaginal cuff appears normal without vascular mass. Ovaries: Surgically absent. No masses or fluid in either adnexa. Other: There is an intradermal vascular nodule at the left labia measuring 0.9 x 0.8 x 0.6 cm. IMPRESSION: Post hysterectomy and oophorectomy without development of suspicious adnexal or vaginal cuff mass. There is a vascular intradermal lesion at the left labia. This is most likely folliculitis. Clinical evaluation is recommended. We strive to produce accurate, complete, and clear reports of imaging services. To assist us in improving patient care, this report was composed using standard report templates and voice recognition software. Therefore, it may contain abnormal punctuation, insertions and/or omissions. Occasional wrong-word or sound-alike substitutions may occur. Though we review the report and make efforts to correct it, we do recommend that the report be read carefully in proper context to recognize any text inaccuracies. Dictated by: Dejah Lopez M.D. on 12/27/2023 at 19:06 Approved by: Dejah Lopez M.D. on 12/27/2023 at 19:07
== END ==
PROVIDERS: Family Provider Family Medicine; PCP Family Medicine; Referring Provider Family Medicine; Visit Provider Family Medicine
DX: R10.32 Left lower quadrant pain (principal); L98.9 Disorder of the skin and subcutaneous tissue, unspecified; Z90.710 Acquired absence of both cervix and uterus; Z90.722 Acquired absence of ovaries, bilateral
CPT/HCPCS: 76830; 76856

== ENCOUNTER → 2024-01-07 15:25 | Outpatient (CLI) | payer MEDICARE, OTHER, SELFPAY ==
--- NOTE | 2024-02-22 06:52 | DIAB.MNTFU ---
Follow-up Diabetes Medical Nutrition Therapy Assessment Name: Santosh Magdaleno Date: 01/07/24 Time: 340-440p Dx: Type II Diabetes Santosh presents for follow-up. Switched GLP1, taking Mounjaro via endo provider. States overall doing well, no SE. Previously on Ozempic, and had severe constipation and hair loss. This has resolved since switching GLP1s. Wanting to review CHO/PRO portions today and recommendations. Wants to know how much protein she should eat. Has heard she should be eating more while on GLP1. Though this RD is predicting that this rec is more likely r/t weight loss and the need for maintaining LBM. Has elevations after eating out and having dessert reportedly. Wants to add more veggies, but she is feeling bored of salad and dressing ideas. Diet recall: 930a: fit milk x 8oz, 2 sausages OR 1/2 raisin toast with PB 2p: eating out with dessert x 4 days per week. OR breakfast burrito no tortilla and coffee cake OR open face egg sandwich with coffee cake 7p: pork chop and veggies OR tofu and veggies OR pasta x 1/2 c wtih hemp hearts 11p-12a: 12oz fit milk Not eating potatoes, rice or much bread. Anthropometrics: Wt: 166# reported Weight history: Reports goal of wanting to lose 10# more. H/o 192# per report. Physical Activity: Not reported today. Self-Monitoring Blood Glucose: Reports waking 120-130 mg/dl range. Much improved time in range. 14 day data: Time in range: 0% very high 3% high 97% in range 0% low or very low Avg BG 131 mg/dl std dev 23 mg/dl variation: 17.9% Last Visit: 14 day data: Avg BG 171 mg/dl Time in range: 3% very high 28% high 69% in range 0% low or very low Diabetes Medications: 1000mg BID Metformin 0.5mg Mounjaro Pertinent Labs: HgA1c 9.6% 07/2022 9.3% 12/2021 7.1% 07/2023 Past Medical History: (Last Reviewed 02/26/20 @ 14:30 by Ivonne Merrill MD) Endometrial cancer Nutrition Rx: Carbohydrates: Meal:30-45g Snack:15-30g Protein: 60-70g per day ; Meal: 15-20g Snack: 7-14g Nutrition Diagnosis: Intervention: This participant was very receptive. Provided appropriate educational handouts. Discussed the following topics: Blood sugar review and trends. Impact of food intake on results. Macronutrient recommendations Weight loss and associated LBM loss Strategies for maintaining LBM Salad ideas and new dressing recipes Potential PCM s/s Created SMART goals for patient self-care and success. Goals: Try a new salad Add extra protein mid day Follow-up: ERNIE GONZALEZ follow-up in 3 months per pt request. Blanca Juarez, ERNIE, [facility] Certified Diabetes Care and Forestry Extension Specialist P: [phone] Thank you for this referral
== END ==
PROVIDERS: Family Provider Family Medicine; PCP Family Medicine; Referring Provider Family Medicine
DX: E11.9 Type 2 diabetes mellitus without complications (principal); Z71.3 Dietary counseling and surveillance; Z79.84 Long term (current) use of oral hypoglycemic drugs; Z79.85 Long-term (current) use of injectable non-insulin antidiabetic drugs
CPT/HCPCS: 97803

== ENCOUNTER → 2024-04-07 15:18 | Outpatient (CLI) | payer MEDICARE, OTHER, SELFPAY ==
--- NOTE | 2024-05-19 08:56 | DIAB.FU ---
Follow-up Diabetes Education Assessment Name: Santosh Magdaleno Date: 04/07/24 Time: 340-410p Dx: Type II Diabetes Santosh presents for follow-up. Not currently using CGM. Cost is main concern and she is trying to space out [id number] CGMs. Using a compound pharmacy for GLP1 under endo rec per report. Worries about losing access to her GLP1 and has been researching [facility] access. Currently no medication insurance due to some mix up with [facility]. More stirfrys lately. Eating jerky to increase protein intake lately. Self-Monitoring Blood Glucose: None at this time. SMBG strips and not wearing CGM. Reports overall BG have been in range when checking previously. Last Visit 14 day data: Time in range: 0% very high 3% high 97% in range 0% low or very low Avg BG 131 mg/dl std dev 23 mg/dl variation: 17.9% Diabetes Medications: 1000mg BID Metformin 0.5mg Mounjaro Pertinent Labs: HgA1c 9.6% 07/2022 9.3% 12/2021 7.1% 07/2023 6.9% 12/2023 reported Past Medical History: (Last Reviewed 02/26/20 @ 14:30 by Ivonne Merrill MD) Endometrial cancer Intervention: This participant was very receptive. Provided appropriate educational handouts. Discussed the following topics: OTC CGM options Medication access and options Created SMART goals for patient self-care and success. Goals: Try a new salad- not met Add extra protein mid day- met Check out Stelo OTC CGM compatibility with phone- new Follow-up: ERNIE GONZALEZ follow-up fredi Juarez RDN, [facility] Certified Diabetes Care and Class B Truck Driver P: [phone] Thank you for this referral
== END ==
PROVIDERS: Family Provider Family Medicine; PCP Family Medicine; Referring Provider Family Medicine
DX: E11.9 Type 2 diabetes mellitus without complications (principal); Z71.3 Dietary counseling and surveillance; Z79.84 Long term (current) use of oral hypoglycemic drugs; Z79.85 Long-term (current) use of injectable non-insulin antidiabetic drugs
CPT/HCPCS: G0108

== ENCOUNTER → 2024-07-17 15:15 | Outpatient (CLI) | payer MEDICARE, OTHER, SELFPAY ==
--- NOTE | 2024-07-17 15:18 | DI.US.S_ITS ---
PROCEDURE: US CAROTID DOPPLER BI INDICATIONS: BRUIT OF RT CAROTID ARTERY TECHNIQUE: Color and pulse Doppler interrogation was performed of both carotid systems, with image documentation and velocity measurements. COMPARISON: None. FINDINGS: Stenosis calculations are based on SRU (Society of Radiologists in Ultrasound) criteria. Right side: Brachial blood pressure: 130/60 mm Hg. Common carotid artery peak systolic velocity: 62 cm/sec. Internal carotid artery peak systolic velocity: 97 cm/sec. Internal carotid artery end diastolic velocity: 20 cm/sec. External carotid artery peak systolic velocity: 73 cm/sec. ICA/CCA peak systolic ratio: 1.2 . Delgado scale imaging description: Mild atherosclerotic plaques Percent internal carotid artery stenosis: Less than 50% . Vertebral artery: Flow direction is antegrade. Left side: Brachial blood pressure: 116/58 mm Hg. Common carotid artery peak systolic velocity: 56 cm/sec. Internal carotid artery peak systolic velocity: 63 cm/sec. Internal carotid artery end diastolic velocity: 19 cm/sec. External carotid artery peak systolic velocity: 82 cm/sec. ICA/CCA peak systolic ratio: 1.1 . Delgado scale imaging description: No significant atherosclerotic plaques Percent internal carotid artery stenosis: No significant stenosis Vertebral artery: Flow direction is antegrade. IMPRESSION: 1. In the right carotid artery, there is less than 50% stenosis based on peak systolic velocity criteria. 2. In the left carotid artery, there is no significant stenosis based on peak systolic velocity criteria. 3. Antegrade vertebral arteries. Dictated by: Jaylen Hudson M.D. on 07/17/2024 at 16:27 Approved by: Jaylen Hudson M.D. on 07/17/2024 at 16:30
== END ==
PROVIDERS: Family Provider Family Medicine; PCP Family Medicine; Referring Provider Specialist; Visit Provider Specialist
DX: R09.89 Other specified symptoms and signs involving the circulatory and respiratory systems (principal); I65.21 Occlusion and stenosis of right carotid artery
CPT/HCPCS: 93880